=== PATIENT | female | born 1985 | race Caucasian/White ===

== ENCOUNTER 2024-01-15 14:25 | Outpatient (AMB) | payer OTHER, SELFPAY ==
--- NOTE | 2024-01-15 14:32 | A.OFFPC_ITS ---
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 Patient has concerns for bloating after eating, so much so it looks like she is . Patient has been trying different types of foods, seen by gastro and unable to figure out what the prob anali is. Loss if hearing from M?ni?re's disease. Patient has tingling feeling in bilateral arms and legs. Probe Operator Required: No Accompanied by: Self / Same As Patient Allergies No Known Allergies [No Known Allergies*] Allergy (Verified 01/15/24 14:41) Tobacco use date assessed: 01/15/24 Dental Screening Dental Screen Date: 01/15/24 Did you have a dental visit in the last 12 months?: Yes Did you have a dental problem in the last 6 months where you did not have access to dental care?: No Was dental information given to patient?: Patient has dentist HPI HPI Comments History of Present Illness Details This is a 38-year-old female with a past medical history of Meniere's disease presenting to establish care. Three years ago the patient was diagnosed with Meniere's disease. She is still seen every 6 months by ENT on was not having [place]. She is deaf in her right ear. The patient was seen by Dr. Holbrook at [facility] this month for numbness and tingling in extremities. She endorses symptoms for at least 3 years. She said she will have intermittent numbness and tingling that occurs once or twice per week lasting about 15 minutes which can affect the upper extremities, the shoulders and her lower extremities. She endorses fatigue. She endorses hand cramping. No weakness, back pain, neck pain or bowel or bladder incontinence. She endorses episodic knee pain. Lyme testing was negative. Hemoglobin A1c was normal. No dizziness or falls. She is going to follow up in 3 months. She had an MRI after onset of symptoms when she was diagnosed with Meniere's. Patient is also being evaluated by [facility] for upper abdominal pain with bloating and gas and distention. She can go months without symptoms before they return. She tried an antacid, but it made her feel worse so she stopped it. She has a follow up appointment at the end of February. She does not take NSAIDs. She does not drink or smoke. Patient reportedly had an ultrasound which did not show any cause for symptoms. Patient is seen by her stockroom helper at [facility] every 6 months due to cervical dysplasia. ROS: Constitutional: No unexplained weight loss, fever, chills or night sweats. Eyes: No vision changes, blurry vision, double vision or eye pain Respiratory: No shortness of breath, cough or sputum production. Cardiovascular: No chest pain, chest pressure or chest discomfort. No palpitations or pedal edema. Neurologic: No headache, dizziness, syncope, unilateral weakness, ataxia Musculoskeletal: No joint swelling Skin: No rash or itching. Physical exam: Constitutional: Alert, in no distress. Head: Normocephalic. Eyes: Pupils are equal, round and reactive to light. Extraocular muscles intact. Neck: Supple, Full range of motion. No lymphadenopathy. No palpable thyroid masses. Respiratory: Clear to auscultation. Cardiovascular: S1 S2 regular. No murmurs. Gastrointestinal: Abdomen soft, non-tender, non-distended. Normal bowel sounds. No palpable masses. Neurologic: No focal neurological deficits. Symmetric patellar reflexes. Moves all extremities spontaneously. Sensation intact bilaterally. Extremities: Warm and well perfused. No clubbing, cyanosis or edema. 3+ peripheral pulses bilaterally. Psychiatric: Normal mood and affect [facility] Medical History (Updated 01/15/24 @ 16:02 by MIR Dugan) Paresthesia Abdominal bloating Cervical dysplasia Fatigue Deafness in right ear Meniere disease Surgical History (Updated 01/15/24 @ 14:48 by Soraya Lainez CMA) Hx of breast implants, bilateral Family History (Updated 01/15/24 @ 15:24 by MIR Dugan) Maternal Aunt Breast cancer Social History (Updated 01/15/24 @ 14:46 by Soraya Lainez CMA) Household Members: Spouse and Children Housing: House Are you a primary career center director to a significant other at home: No Do you presently have visiting nurse or other home services: No 75 years or older and lives alone: No Alcohol intake: former Patient Tobacco Use Status: Never used Tobacco e-Cigarette/Vaping Use: Never Used service: No Current occupational status: employed Current occupation: [employer] Current occupational exposures/hazards: Yes Cognitive needs: No Hearing needs: Yes (deaf in right ear) Vision needs: No Questionnaire PHQ-9 Over the last 2 weeks, how often have you been bothered by any of the following problems? 1. Little interest or pleasure in doing things: not at all 2. Feeling down, depressed, or hopeless: not at all 3. Trouble falling or staying asleep, or sleeping too much: not at all 4. Feeling tired or having little energy: not at all 5. Poor appetite or overeating: not at all 6. Feeling bad about yourself - or that you are a failure or have let yourself or your family down: not at all 7. Trouble concentrating on things, such as reading the newspaper or watching television: not at all 8. Moving or speaking so slowly that other people could have noticed. Or the opposite - being so fidgety or restless that you have been moving around a lot more than usual: not at all 9. Thoughts that you would be better off or of hurting yourself in some way: not at all Total score: 0 Depression Screening Interpretation: Negative Depression Screening Done: Yes 56629 - PHQ-9 Billing: Yes Source: Developed by Drs. Matteo Chan, Lucretia Arciniega, Mickey Mercer and colleagues, with an educational deanne from [employer]. Thrive Questionnaire Date Thrive assessed: 01/15/24 I am a: Patient What is your living situation today?: I have a steady place to live Within the past 12 months, did the food you bought not last and you didn't have the money to get more?: Never true Within the past 12 months, did you worry whether your food would run out before you got money to buy more?: Never true Do you have trouble paying for medicines?: No Do you have trouble getting transportation to medical appointments?: No Do you have trouble paying your heating and electricity bill?: No Do you have trouble taking care of your child, family member or friend?: No Do you have trouble with day-to-day activities such as bathing, preparing meals, shopping, managing finances, etc.?: No Are you currently unemployed and looking for a job?: No Are you interested in more education?: No Please select the resources that you would like help with: None Currently or been in a relationship where the following occur: No concerns reported THRIVE Score: 0 AUDIT C Alcohol Use Questionnaire (AUDIT-C) 1. How often do you have a drink containing alcohol?: Never 3. How often do you have six or more drinks on one occasion?: Never Total Score: 0 EVANGELINA-7 AMB Questionnaire EVANGELINA-7 Date EVANGELINA - 7 assessed: 01/15/24 Feeling nervous, anxious, or on edge: 0 = Not at all Not being able to stop or control worryin = Not at all Worrying too much about different things: 0 = Not at all Trouble relaxin = Not at all Being so restless that it is hard to sit still: 0 = Not at all Becoming easily annoyed or irritable: 0 = Not at all Feeling afraid as if something awful might happen: 0 = Not at all Total EVANGELINA-7 score (0-4 normal; 5-9 mild; 10-14 moderate; 15-21 severe): 0 Source: Developed by Drs. Matteo Chan, Lucretia Arciniega, Mickey Mercer and colleagues, with an educational deanne from [employer]. EVANGELINA-7 Assessment Billing EVANGELINA-7 Assessment Tool: EVANGELINA-7 Assessment 88285 Physical exam (Primary Care) Vital Signs: Last Vital Signs Pulse 51 01/15/24 14:34 Resp 12 01/15/24 14:34 BP 104/58 L 01/15/24 14:34 Pulse Ox 99 01/15/24 14:34 Oxygen Delivery Method Room Air 01/15/24 14:34 BMI result Body Mass Index 24.6 Tobacco/Smoking Status: Tobacco use Status Tobacco use date assessed 01/15/24 01/15/24 14:51 Patient Tobacco Use Status Never used Tobacco 01/15/24 14:51 e-Cigarette/Vaping Use Never Used 01/15/24 14:51 PHQ-9: PHQ-9 Score PHQ-9: Total score 0 01/15/24 14:51 Depression Screening Interpretation: Negative Thrive Assessment: Date of Thrive Assessment Date Thrive assessed 01/15/24 01/15/24 14:51 Currently or been in a relationship where the following occur: No concerns reported Assessment and Plan Assessment & Plan (1) Abdominal bloating: Code(s): R14.0 - Abdominal distension (gaseous) Plan: See lab orders. Follow up with Gastroenterology as planned. May need endoscopy. (2) Paresthesia: Code(s): R20.2 - Paresthesia of skin Plan: Check complete labs. Ordered FATOUMATA and rheumatoid factor given fatigue and episodic knee pain. Follow up with Neurology as planned. (3) Meniere disease: Code(s): H81.09 - Meniere's disease, unspecified ear Qualifiers: Laterality: right Qualified Code(s): H81.01 - Meniere's disease, right ear Plan: Followed by ENT. 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 (4) Fatigue: Code(s): R53.83 - Other fatigue Qualifiers: Fatigue type: chronic, unspecified Qualified Code(s): R53.82 - Chronic fatigue, unspecified Plan Follow up in 1-2 weeks to review labs via telehealth. Orders: Orders Complete Blood Count Auto Diff Today R20.2 - Paresthesia of skin, R53.83 - Other fatigue, Z13.6 - Encounter for screening for cardiovascular disorders Comprehensive Met. Panel Today R20.2 - Paresthesia of skin, R53.83 - Other fatigue, Z13.6 - Encounter for screening for cardiovascular disorders Ferritin Today R53.83 - Other fatigue FATOUMATA Reflex Titer and Pattern Today M25.50 - Pain in unspecified joint Lipid Panel Today R20.2 - Paresthesia of skin, R53.83 - Other fatigue, Z13.6 - Encounter for screening for cardiovascular disorders TSH reflex Free T4 Today E66.9 - Obesity, unspecified, R20.2 - Paresthesia of skin, R53.83 - Other fatigue, Z13.6 - Encounter for screening for cardiovascular disorders Vitamin B12 and Folate Today R20.2 - Paresthesia of skin, R53.83 - Other fa tigue, Z13.6 - Encounter for screening for cardiovascular disorders Vitamin D 1,25 dihydroxy Today R20.2 - Paresthesia of skin, R53.83 - Other fatigue, Z13.6 - Encounter for screening for cardiovascular disorders IRON PROFILE Today R53.83 - Other fatigue Rheumatoid Factor Today M25.50 - Pain in unspecified joint Lipase Today R14.0 - Abdominal distension (gaseous) Coding Level of Care Code New Pt Level 3 (57126) Complex EM visit Add On G2211 Diagnoses Abdominal bloating R14.0 Paresthesia R20.2 Meniere's disease of right ear H81.01 Laterality: right Chronic fatigue R53.82 Fatigue type: chronic, unspecified Additional Codes EVANGELINA-7 Assessment Billing - EVANGELINA-7 Assessment Tool: EVANGELINA-7 Assessment 53409 ([id number])
[2024-01-15 14:34] VITALS: BP 104/58; PULSE 51; RESP 12; O2SAT 99; BMI 24.6
== END 2024-01-15 16:23 | disposition home or self-care (01) ==
PROVIDERS: PCP Physician Assistant Medical; Visit Provider Physician Assistant Medical
DX: R14.0 Abdominal distension (gaseous) (principal); R20.2 Paresthesia of skin; H81.01 Meniere's disease, right ear; R53.82 Chronic fatigue, unspecified
CPT/HCPCS: 99203; G2211

== ENCOUNTER 2024-01-16 09:12 | Outpatient (REF) | payer OTHER, SELFPAY ==
[2024-01-16 13:07] LABS: MANUAL DIFF FLAG NO
[2024-01-16 13:18] LABS: Basophils Percent Auto 0.9 % (0-2); Eosinophils Absolute Auto 0.1 X10*3/uL (0.0-0.4); Eosinophils Percent Auto 2.4 % (0-4); Hematocrit 41.7 % (37.0-47.0); Hemoglobin 13.9 g/dl (12.0-16.0); Imm Gran Abs Auto 0.01 X10*3/uL (0.00-0.03); Imm Gran Pct Auto 0.3 % (0.0-0.4); Lymphocytes Absolute Auto 1.1 X10*3/uL (1.2-4.9); Lymphocytes Percent Auto 34.5 % (20-40); Mean Corpuscular HGB Conc 33.3 g/dl (31.0-35.0); Mean Corpuscular Hemoglobin 28.9 pg (27.0-33.0); Mean Corpuscular Volume 86.7 fL (80.0-98.0); Mean Platelet Volume 10.9 fL (9.4-12.3); Monocytes Absolute Auto 0.3 X10*3/uL (0.1-1.2); Monocytes Percent Auto 9.5 % (2-11); Neutrophils Absolute Auto 1.7 x10*3/uL (2.0-8.3); Neutrophils Percent Auto 52.4 % (45-73); Platelet Count 230 X10*3/uL (160-400); Red Blood Count 4.81 X10*6/uL (4.20-5.50); Red Cell Distribution Width 13.2 % (11.0-16.0); White Blood Count 3.3 X10*3/uL (4.8-10.8)
[2024-01-16 13:37] LABS: Alanine Aminotransferase 22 U/L (0-31); Albumin Level 4.5 g/dL (3.5-5.0); Alkaline Phosphatase 47 U/L (39-117); Anion Gap 13 (12-20); Aspartate Amino Transferase 23 U/L (5-31); Bilirubin Total 0.4 mg/dL (0.0-1.0); Blood Urea Nitrogen 14 mg/dL (9-16); Carbon Dioxide 25 mmol/L (22-29); Chloride 107 mmol/L (96-108); Cholesterol 163 mg/dL (<200); Estimated Glomerular Filt Rate > 60; Glucose Random 96 mg/dL (60-115); HDL Cholesterol 82 mg/dL (>40); Iron 111 mcg/dL (30-160); LDL Cholesterol Calculated 73 mg/dL (<100); Lipase 21 U/L (8-78); Percent Iron Saturation 46 % (15-50); Potassium 4.2 mmol/L (3.3-5.1); Sodium 141 mmol/L (135-145); Total Iron Binding Capacity 241 mcg/dL (228-428); Total Protein 7.1 g/dL (6.5-8.0); Triglycerides 44 mg/dL (<150); Unsaturated Iron Binding 130 ug/dL
[2024-01-16 13:38] LABS: Rheumatoid Factor < 13.0 IU/mL (<15.0)
[2024-01-16 13:44] LABS: Ferritin 249 ng/mL (10-122)
[2024-01-16 13:55] LABS: Vitamin B12 502 pg/mL (200-900)
[2024-01-21 07:42] LABS: Anti Nuclear Antibody Screen NEGATIVE (NEGATIVE)
[2024-01-23 14:04] LABS: VITAMIN D (1,25 OH) D3 60 pg/mL; Vit D (1,25-Dihydroxy) Total 60 pg/mL (18-72); Vitamin D (1,25 OH) D2 <8 pg/mL
== END 2024-01-16 09:13 | disposition home or self-care (01) ==
LOC: HO.HMGCLDS 09:12
PROVIDERS: PCP Physician Assistant Medical; Visit Provider Physician Assistant Medical
DX: R53.83 Other fatigue (principal); Z13.6 Encounter for screening for cardiovascular disorders; R20.2 Paresthesia of skin; M25.50 Pain in unspecified joint; E66.9 Obesity, unspecified; R14.0 Abdominal distension (gaseous)
CPT/HCPCS: 36415; 80053; 80061; 82607; 82652; 82728; 82746; 83540; 83690; 84443; 85025; 86038; 86431

== ENCOUNTER 2024-02-16 11:49 | Outpatient (AMB) | payer OTHER, SELFPAY ==
--- NOTE | 2024-02-16 12:11 | MHC.PC.OV ---
Vital Signs 02/16/24 12:12 Height 5 ft 7 in Weight 128 lb BMI 20.0 BP 129/74 Blood Pressure Location Lt brachial Position Sitting Respiration 12 Pulse 81 Pulse Source Pulse Oximeter Pulse Oximetry (%) 100 Oxygen Delivery Method Room Air Intake Visit Reasons: results f/u Intake Note: Follow up results. Professor Of Pathology Required: No Is last menstrual period known: No (Has IUD hasn't had menstrual cycle in 2 months.) Allergies No Known Allergies [No Known Allergies*] Allergy (Verified 02/16/24 12:11) Tobacco use date assessed: 01/15/24 Dental Screening Dental Screen Date: 01/15/24 HPI HPI Comments History of Present Illness Details This is a 38-year-old female with a past medical history of Meniere's disease presenting to review lab results. We previously discussed that she has decreased neutrophils, lymphocyte count and white blood cell count at 1.7, 1.1 and 3.3, respectively. She is not anemic. Her platelet count is normal. Her ferritin is also elevated at 249. LFTs normal. No recent infections or hospitalizations. She does not recall being told she had low white blood cells in the past. No fevers or chills. She called while I was on vacation and requested a referral to see Heme-Onc. She has the appointment scheduled on Friday. Denies family history of hemochromatosis. Initially she reported not taking any supplements that contain iron, but she tells me today that she has been taking Viviscal for hair growth for the past 6 months. Iron is on the ingredient list. She contacted her heating and ventilation engineer, and she has an upper endoscopy scheduled on 04/22/2024 in [place]. On exam she had mild tinea versicolor on her upper back. She saw a automobile mechanic assistant about this in the past. Documented at initial visit: The patient was seen by Dr. Holbrook at [facility] this month for numbness and tingling in extremities. She endorses symptoms for at least 3 years. She said she will have intermittent numbness and tingling that occurs once or twice per week lasting about 15 minutes which can affect the upper extremities, the shoulders and her lower extremities. She endorses fatigue. She endorses hand cramping. No weakness, back pain, neck pain or bowel or bladder incontinence. She endorses episodic knee pain. Lyme testing was negative. Hemoglobin A1c was normal. No dizziness or falls. She is going to follow up in 3 months. She had an MRI after onset of symptoms when she was diagnosed with Meniere's. Patient is also being evaluated by [facility] for upper abdominal pain with bloating and gas and distention. She can go months without symptoms before they return. She tried an antacid, but it made her feel worse so she stopped it. She has a follow up appointment at the end of February. She does not take NSAIDs. She does not drink or smoke. Patient reportedly had an ultrasound which did not show any cause for symptoms. ROS: Constitutional: No unexplained weight loss, fever, chills or night sweats. +fatigue Eyes: No vision changes, blurry vision, double vision Respiratory: No shortness of breath, cough or sputum production. Cardiovascular: No chest pain, chest pressure or chest discomfort. Gastrointestinal: see HPI Neurologic: see HPI Hematologic/Lymphatics: No bleeding or bruising. Physical exam: Constitutional: Alert, in no distress. Head: Normocephalic. Neck: Supple, Full range of motion. No lymphadenopathy. No palpable thyroid masses. Respiratory: Clear to auscultation. Cardiovascular: S1 S2 regular. No murmurs Gastrointestinal: Abdomen soft, non-tender, non-distended. Normal bowel sounds. No palpable masses. Skin: Hypopigmented macular rash on the upper back [facility] Medical History (Updated 02/16/24 @ 13:28 by MIR Dugan) Tinea versicolor Decreased leukocytes High serum ferritin Paresthesia Abdominal bloating Cervical dysplasia Fatigue Deafness in right ear Meniere disease Surgical History (Updated 01/15/24 @ 14:48 by Soraya Lainez CMA) Hx of breast implants, bilateral Family History (Updated 01/15/24 @ 15:24 by MIR Dugan) Maternal Aunt Breast cancer Social History (Updated 01/15/24 @ 14:46 by Soraya Lainez CMA) Household Members: Spouse and Children Housing: House Are you a primary career services manager to a significant other at home: No Do you presently have visiting nurse or other home services: No 75 years or older and lives alone: No Alcohol intake: former Patient Tobacco Use Status: Never used Tobacco e-Cigarette/Vaping Use: Never Used service: No Current occupational status: employed Current occupation: [employer] Current occupational exposures/hazards: Yes Cognitive needs: No Hearing needs: Yes (deaf in right ear) Vision needs: No Questionnaire Thrive Questionnaire Date Thrive assessed: 01/15/24 EVANGELINA-7 AMB Questionnaire EVANGELINA-7 Date EVANGELINA - 7 assessed: 01/15/24 Source: Developed by Drs. Matteo Chan, Lucretia Arciniega, Mickey Mercer and colleagues, with an educational deanne from [employer]. Physical exam (Primary Care) Vital Signs: Last Vital Signs Pulse 81 02/16/24 12:12 Resp 12 02/16/24 12:12 BP 129/74 02/16/24 12:12 Pulse Ox 100 02/16/24 12:12 Oxygen Delivery Method Room Air 02/16/24 12:12 BMI result Body Mass Index 20.0 Tobacco/Smoking Status: Tobacco use Status Tobacco use date assessed 01/15/24 02/16/24 12:15 Patient Tobacco Use Status Never used Tobacco 02/16/24 12:15 e-Cigarette/Vaping Use Never Used 02/16/24 12:15 Thrive Assessment: Date of Thrive Assessment Date Thrive assessed 01/15/24 02/16/24 12:15 Assessment and Plan Assessment & Plan (1) Abdominal bloating: Code(s): R14.0 - Abdominal distension (gaseous) Plan: Follow up with Gastroenterology for endoscopy scheduled 04/22/2024 as planned. (2) Paresthesia: Code(s): R20.2 - Paresthesia of skin Plan: Labs nondiagnostic. Patient will follow up with Neurology as planned. (3) Meniere disease: Code(s): H81.09 - Meniere's disease, unspecified ear Qualifiers: Laterality: right Qualified Code(s): H81.01 - Meniere's disease, right ear Plan: Followed by ENT. 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 (4) High serum ferritin: Code(s): R79.89 - Other specified abnormal findings of blood chemistry Plan: This may in fact be due to taking the hair supplement which turned out to contain iron for the past 6 months. She will stop taking it. She will discuss this with Hematology. (5) Decreased leukocytes: Code(s): D72.819 - Decreased white blood cell count, unspecified Qualifiers: Leukopenia type: lymphocytopenia Qualified Code(s): D72.810 - Lymphocytopenia Plan: We again discussed this may be transient and that some patients have white blood cell counts outside of the normal range which may not be pathological. She requested a referral to see a body care manager, and she has the appointment scheduled on Friday. (6) Tinea versicolor: Code(s): B36.0 - Pityriasis versicolor Plan: Preventative measures reviewed. Prescribed topical ketoconazole. Recommended washing with Selsun blue shampoo. Plan Follow up for complete physical exam. Medications: New ketoconazole 2% 1 appl topical BID 60 grams 1RF Coding Level of Care Code Est Pt Level 4 (29601) Complex EM visit Add On G2211 Diagnoses Abdominal bloating R14.0 Paresthesia R20.2 Meniere's disease of right ear H81.01 Laterality: right High serum ferritin R79.89 Lymphopenia D72.810 Leukopenia type: lymphocytopenia Tinea versicolor B36.0
[2024-02-16 12:12] VITALS: BP 129/74; PULSE 81; RESP 12; O2SAT 100
== END 2024-02-16 12:44 | disposition home or self-care (01) ==
PROVIDERS: PCP Physician Assistant Medical; Visit Provider Physician Assistant Medical
DX: R14.0 Abdominal distension (gaseous) (principal); R20.2 Paresthesia of skin; H81.01 Meniere's disease, right ear; R79.89 Other specified abnormal findings of blood chemistry; D72.810 Lymphocytopenia; B36.0 Pityriasis versicolor
CPT/HCPCS: 99214; G2211

== ENCOUNTER → 2024-02-18 14:20 | Outpatient (BNV) | payer OTHER, SELFPAY | PROVIDERS: PCP Physician Assistant Medical; Referring Provider Physician Assistant Medical; Visit Provider Internal Medicine | DX: D72.819 Decreased white blood cell count, unspecified (principal); R79.89 Other specified abnormal findings of blood chemistry | CPT/HCPCS: 99204; 99214; G2211 ==

== ENCOUNTER 2024-07-26 08:33 | Outpatient (AMB) | payer OTHER, SELFPAY ==
--- OUTSIDE RECORDS SUMMARY | 2024-07-26 08:39 | XMS_ITS | Continuity of Care Document ---
Author Organization [facility] Address [address], [address], [address] [place] [address]- Care Team Providers Care Real Estate Coordinator Name Role Phone Rubén HOBBS, Glenny Sampson Primary Care Physician [id number] Date[facility]s): 06/03/24 - 07/03/24 [facility] [address], [address] [place] [id number] Encounter Type: Triage Allergies, Adverse Reactions, Alerts No Known Allergies Medications famotidine 40 mg oral tablet 1 tablet = 40 mg, By Mouth, 2 times a day, # 60 tablet, 3 Refills, Maintenance, 05/07/24 11:37:00 AM EST, Tablet, [facility] #[id number], Partial fill upon patient request if the prescription isfor a schedule II opioid drug., 169, cm, 05/07/24 10:04:00 EST, Height, 56.2, kg, 05/07/24 10:04:00EST, Dry Weight Start Date: 05/07/24 Stop Date: 09/04/24 Status: Ordered Quantity: 60.0 Unit: tablet Repeat number: 4 hyoscyamine 0.125 mg oral tablet 0.125 mg, 1, tablet, By Mouth, 4 times a day, PRN, # 40 tablet, Refills 3, Tot. Refills 3, Maintenance, for spasm, 03/19/24 9:19:00 AM EDT, Route to Pharmacy Electronically, [facility] #[id number], Partial fill upon patient request if the prescription is for a schedule II opioid drug., 169, cm,03/19/24 8:43:00 EDT, Height, 58.63, kg, 12/29/23 10:09:00 EDT, Dry Weight Start Date: 03/19/24 Status: Ordered Quantity: 40.0 Unit: tablet Repeat number: 4 Social History Social History Type Response Smoking Status Never (less than 100 in lifetime) entered on: 03/19/24 Sex Sex Representation Female (finding) Patient Care team information Care Team Personnel Name: Rubén HOBBS, Glenny Sampson Position: S Physician - Primary Care Member Role: PCP Address: [address] [place] [address] [facility] [place], [place] [address] Telecom: Care Team Related Persons Name: ALEX RAMIREZ Insurance Providers Guarantor name: [facility] Plan Information #: 1 Payer: [facility] Direct Non [place] Member Number: NA Policy Number: NA Group Number: NA
--- OUTSIDE RECORDS SUMMARY | 2024-07-26 08:39 | XMS_ITS | Clinical Summary ---
Author Organization [facility] Address [address] [place] [address] Care Team Providers Care Sludge Mill Operator Name Role Phone Unavailable Primary Care Provider Unavailabl e Social History Tobacco Use Types Packs/Day Years Used Date Smoking Tobacco: Never Assessed Sex and Gender Information Value Date Recorded Sex Assigned at Not on file Gender Identity Not on file Sexual Orientation Not on file Plan of Treatment Health Maintenance Due Date Last Done Comments DTaP,Tdap,and Td Vaccines (1 - Tdap) 2004 Hepatitis B Vaccines (1 of 3 - 19+ 3-dose series) 2004 Cervical Cancer Screening: P ap Smear 2006 COVID-19 Vaccine ( - 2023-2 5 season) 2024 Influenza Vaccine (#1) 2024 HIB Vaccines Aged Out No longer eligi ble based on patient's age to complete this topic HPV Vaccines Aged Out No longer eligi ble based on patient's age to complete this topic Hepatitis A Vaccines Aged Out No long er eligible based on patient's age to complete this topic IPV Vaccines Aged Out No longer eligi ble based on patient's age to complete this topic MMR Vaccines Aged Out No longer eligi ble based on patient's age to complete this topic Meningococcal ACWY Vaccine Aged Out N o longer eligible based on patient's age to complete this topic Pneumococcal Vaccine: Pediat rics (0 to 5 Years) and At-Risk Patients (6 to 64 Years) Aged Out No longer eligible b ased on patient's age to complete this topic RSV Immunization Patients Un martha 20 months Aged Out No longer eligible b ased on patient's age to complete this topic Varicella Vaccines Aged Out No longer eligible based on patient's age to complete this topic
--- OUTSIDE RECORDS SUMMARY | 2024-07-26 08:39 | XMS_ITS | Continuity of Care Document ---
Author Organization [facility] Address [address] [place] [address]- Care Team Providers Care Career Counselor Name Role Phone Rubén HOBBS, Glenny Sampson Primary Care Physician [place] [facility]/26/24 - 06/25/24 [facility] [address], [place] [address] Encounter Type: Triage Allergies, Adverse Reactions, Alerts No Known Allergies Medications famotidine 40 mg oral tablet 1 tablet = 40 mg, By Mouth, 2 times a day, # 60 tablet, 3 Refills, Maintenance, 05/07/24 11:37:00 AM EST, Tablet, [facility][id number], Partial fill upon patient request if the [...] 9:19:00 AM EDT, Route to Pharmacy Electronically, [facility] #[id number], Partial fill upon patient request if the [...] - Primary Care Member Role: PCP Address: [address] [place] [address] [facility] [place], [place] [address] Telecom: Care Team Related Persons Name: ALEX RAMIREZ Insurance Providers Guarantor name: [facility] Plan Information #: 1 Payer: [facility] Direct Non [place] Member Number: NA Policy Number: NA Group Number: NA
--- OUTSIDE RECORDS SUMMARY | 2024-07-26 08:39 | XMS_ITS | Data Portability ---
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 Cerumen removed bilaterally without difficulty. Follow up as scheduled for repeat procedure. [email or web address] Not available 01/13/2024 12:14:05 03/29/2024 03/29/2024 Cerumen successfully removed today without incident. Otologic exam otherwise unremarkable. Patient is medically cleared for hearing aid in the right ear. She will follow-up in 6 months with PA for cerumen removal. She understands to call in the interim with any issues that arise. [email or web address] Not available 03/29/2024 09:37:36 05/17/2024 05/17/2024 38-year-old female presents for reevaluation. Cerumen removed bilaterally without difficulty. TMs normal to inspection. Updated audiometric testing was obtained today. She would be a good candidate for cross amplification. She is interested in pursuing this option. She was given medical clearance for cross. Given neurological concerns and vast asymmetry on hearing test recommended updated MRI including IAC to rule out retrocochlear pathology. Will call with results and forward to neurologist. [email or web address] Not available 05/17/2024 15:25:21 06/10/2024 06/10/2024 Reviewed with patient the options available for the latest amplification devices, the differences between makes/models of devices, and the importance of selecting the best make/model for their lifestyle and audiometric needs. Discussed the importance of optimizing the ability to perceive and understand speech by analyzing the output of devices using speech mapping as part of our real-ear verification procedure. The patient's concerns about using hearing devices were discussed. Taking into consideration the patient's lifestyle, personal preferences, severity of hearing loss & hearing handicap, a fitting of Phonak CROS (R) eanybjkp-kh-rep-c anal hearing devices is expected to provide a significant improvement in the patient's ability to communicate. In addition to amplification, additional accommodations should be considered, such as closed captioning on the television or at movie theaters, strategically positioning ones' self closer to the listener, remote microphone technology, Bluetooth technology, and considering reducing noise & reverberation at home. Patient was sent home with a trail set to test the CROS system in her everyday life. Patient has requested for her insurance benefits to be check. This was completed and showed she has no insurgence benefits for hearing aids. I spoke with the patient following the appointment, she did not find enough benefit from the CROS system and would not like to proceed with the aids at this time. [email or web address] Not available 06/11/2024 10:33:28 Plan of Treatment Reminders Order Date Submit Date Provider Last Modified By Organization Details Last Modified Time Details Appointments Establish ed 15 2024 09:15A Carolyn VERDE PA-C Not available Not available Not available Establish ed 15 2024 11:15A M JANETTE PRESSLEY PA-C Not available Not available Not available Lab None recorded. Referral None recorded. Procedures None recorded. Surgeries None recorded. Imaging MRI, brain + internal auditory canal, w/wo contrast 2023 024 [facility] ([facility]), [address] [facility], [place], [address], 05/31/2024 14:29:19 Medication Orders None recorded. Patient TargetsNo targets recorded. Patient InstructionsNo instructions recorded. Reason for Referral None Reported. Results Created Date Observation Date Name Description Value Unit Range Abnormal Flag Note LastModifiedBy Organization Detail LastModifiedTime 02/11/20 24 10/31/2020 imagi ng/di agnos tic resul t No observ ation record ed. [email or web address] Not Available 10:59:29 02/11/20 24 11/03/2020 imagi ng/di agnos tic resul t No observ ation record ed. [email or web address] Not Available 10:59:31 02/11/20 24 12/05/2020 imagi ng/di agnos tic resul t No observ ation record ed. [email or web address] Not Available 10:59:37 02/11/20 24 01/28/2023 imagi ng/di agnos tic resul t No observ ation record ed. [email or web address] Not Available 10:59:39 05/18/20 audio gram No observ ation record ed. [email or web address] Not Available 04/24 08:33:35 06/02/20 24 06/01/2024 MRI, brain + inter nal audit ory canal , w/wo contr ast No observ ation [facility] [address] [place], [address], 06/18/2024 10:36:19 06/02/20 24 06/01/2024 MRI, brain + inter nal audit ory canal , w/wo contr ast No observ ation record ed. [email or web address] [facility] At [address], [address], 06/04/2024 10:00:05 Result Notes None recorded. Problems Name Problem SNOMED Code Status Onset Date Resolution Date Notes Provider Name and Address Organization Details Recorded Time Dizziness and giddiness 102802355 Active 2020 Dizziness and giddiness ; Note: Date Diagnosed : 10/31/2020 2:01 PM (R42) Not Available [facility] 4 03:16:46 Impacted cerumen in left ear 29358135707 57908 Active 2022 Impacted cerumen, left ear; Note: Date Diagnosed : 01/28/2023 9:45 AM (H61.22) Not Available [facility] 4 03:16:45 Otalgia of left ear 7237628199 Active 2020 Otalgia, left ear; Note: Date Diagnosed : 11/21/2020 9:53 AM (H92.02) Not Available [facility] 4 03:16:45 Sudden idiopathi c hearing loss 181727589 Active 2020 Sudden idiopathi c hearing loss, right ear; Note: Date Diagnosed : 10/31/2020 2:51 PM (H91.21) Not Available [facility] 4 03:16:45 Sensorine ural hearing loss 66057460 Active 2020 Sensorine ural hearing loss, unilatera l, right ear, with unrestric blanca hearing on the contralat eral side; Note: Date Diagnosed : 11/14/2020 11:21 AM (H90.41) Sensori neural hearing loss, unilatera l, left ear, with unrestric blanca hearing on the contralat eral side; Note: Date Diagnosed : 10/31/2020 2:01 PM (H90.42) ; Start Date : 1 Not Available [facility] 4 03:16:45 Impacted cerumen of bilateral ears 51260858359 20667 Active 2023 JANETTE PRESSLEY PA-C [address] [place] [address],[place] [address], [place], [address] , [facility] 4 12:14:16 Sensorine ural hearing loss in right ear 92604386035 100 Active 2023 Rowena metcalf [place] - [facility] [place] 4 10:34:01 Problem Notes None recorded. Procedures Surgical History Date Name Laterality Status Provider Name and Address Organization Details Recorded Time 4 Cerumen removal without microscope bilat completed JANETTE PRESSLEY PA-C [address] [place] [address],[place] [address], [place], [address], [facility] 05/17/2024 14:21:55 4 Air & Speech Audio with Tymps (50747, 94105 & 19315) completed Rowena Edmonds [place] - [facility] 05/17/2024 14:35:39 Cerumen removal without microscope bilat completed JUWAN VERDE PA-C [address] [facility], [place], [address], [facility] [place] 03/29/2024 09:37:08 Cerumen removal without microscope bilat completed JANETTE PRESSLEY PA-C [address] [facility], [place], [address], [facility] 01/13/2024 12:13:55 Imaging Results Imaging Date Name Status LastModified by Organiz [facility] Details LastModified Time 10/31/2020 imaging/diagno stic result completed Information not available 02/11/2024 10:59:29 11/03/2020 imaging/diagno stic result completed Information not available 02/11/2024 10:59:31 12/05/2020 imaging/diagno stic result completed Information not available 02/11/2024 10:59:37 01/28/2023 imaging/diagno stic result completed Information not available 02/11/2024 10:59:39 05/18/2024 audiogram completed [email or web address] Information n ot available 05/18/2024 08:33:35 06/01/2024 MRI, brain + internal auditory canal, w/wo contrast completed [facility] [address] [place], [address], 06/18/2024 10:36:19 06/01/2024 MRI, brain + internal auditory canal, w/wo contrast completed [address] Mri At [facility] [address] [place], [address], 06/04/2024 10:00:05 Procedure Notes None recorded. Medical Equipment None Reported. Medications Name Sig Start Date Stop Date Status Note LastModified by Organization Details LastModified Time prednison e 10 mg tablet 2020 active Medicati on ID: 000034 D uration Value: 14 Prescri bed By Name: VICTORIA Queen nd Name: predniso ne Send Method: E-Prescr ibed Sub s Allowed: subs OK Speci al Instruct ion: Take 6 tabs once a day for 9 days, 5 tabs on day 10, 4 tabs on day 11, 3 tabs on day 12, 2 tabs on day 13, and 1 tab on day 14 Medic ationGen ericName : predniso ne Not Available Not Available Not Available famotidin e 40 mg tablet TAKE 1 TABLET BY MOUTH TWICE DAILY active Not Available Not Available No t Available Zofran 4 mg tablet 1 tablet by mouth 2020 active Medicati on ID: [id number] D uration Value: 7 Prescri bed By Name: Akila gunter MD Brand Name: Zofran S end Method: E-Prescr ibed Sub s Allowed: subs OK Medic ationGen ericName : Zofran Not Available Not Available Not Available acyclovir 5 % topical ointment APPLY 1 BEAD TOPICALL Y THREE TIMES DAILY active Not Available Not Available No t Available omeprazol e 20 mg capsule,d elayed release TAKE 1 CAPSULE BY MOUTH DAILY 30 MINUTES BEFORE A MEAL active Not Available Not Available No t Available ketoconaz ole 2 % topical cream APPLY TOPICALL Y TO THE AFFECTED AREA TWICE DAILY active Not Available Not Available No t Available amoxicill in 875 mg-potass ium clavulana te 125 mg tablet 01/28 completed Medicati on ID: [id number] B rand Name: amoxicil angela-pot clavulan ate Send Method: E-Prescr ibed Sub s Allowed: subs OK Speci al Instruct ion: TAKE 1 TABLET BY MOUTH TWICE DAILY WITH FOOD FOR 10 DAYS Med icationG enericNa me: amoxicil angela-pot clavulan ate Not Available Not Available Not Available meclizine 25 mg chewable tablet 01/28 completed Medicati on ID: [id number] B rand Name: meclizin e Send Method: E-Prescr ibed Sub s Allowed: subs OK Speci al Instruct ion: CHEW 1 TABLET BY MOUTH EVERY 6 HOURS NEEDED FOR DIZZINES S OR NAUSEA M edicatio Renée Name: meclizin e Not Available Not Available Not Available Vitals Date Recorded Body height Body mass index (BMI) Body weight Provider Name and Address Organization Details Last Updated DateTime 01/13/2024 170.18 cm 19.3 kg/m2 21429.86 g Zac Jim [facility] 01/13/2024 10:46:39 Date Recorded Body height Body mass index (BMI) Body weight Provider Name and Address Organization Details Last Updated DateTime 03/29/2024 170.18 cm 19.3 kg/m2 95277.86 g Castillo Toth [facility] 03/29/2024 09:22:07 Social History None recorded. Functional Status None recorded. Mental Status None recorded. Family History Nothing Reported. Medical History No medical history recorded. Gynecological HistoryNo gynecological history recorded. Obstetrics History GPAL:G 0 P 0 0 0 0 Past Encounters Encounter ID Performer Location Encounter Start Date Encounter Closed Date Diagnosis/Indication Diagnosis SNOMED-CT Code Diagnosis ICD10 Code Diagnosis Note [id number] PILAR GARCIA MD [facility] [address] [address] 01/13/2024 10:33:43 01/13/2024 10:57:42 Sensorineural hearing loss 38902696 H90.41 H90.42 Impacted c erumen of bilateral ears 6304130219 988499 H61.23 YASMANI SMITH MD [facility] [address] [address] 03/29/2024 09:17:21 03/29/2024 09:37:03 Sensorineural hearing loss 47465249 H90.41 H90.42 Impacted c erumen of bilateral ears 9909309560 076008 H61.23 [id number] YASMANI SMITH MD [facility] [address] [address] 05/17/2024 13:12:12 05/18/2024 07:05:12 Impacted cerumen of bilateral ears 1201158891 328109 H61.23 Sensorineu ral hearing loss 68024063 H90.41 Audiologic al evaluation results: Right ear: No measurable hearing at audiometer limit. Left ear: {{Normal* Normal through 2 kHz Mild M oderate Mo derately-s evere Cat re Profoun d}} {{hearing* hearing. sloping to a mild slopi ng to a moderate s loping to moderately severe slo ping to severe slo ping to profound f lat high frequency low frequency mid frequency cookie bite martini curve}} {{with* se nsorineura l hearing loss with condu ctive hearing loss with mixed hearing loss with}} {{excellen t* good fa ir poor no measurable }} word recognitio n. Tympanomet ry: Right Ear:{{Type A* Type As Type Ad Type C Type C, shallow & rounded Ty pe B Type B with large volume Cou ld not maintain a hermetic seal}} Left Ear:{{Type A* Type As Type Ad Type C Type C, shallow & rounded Ty pe B Type B with large volume Cou ld not maintain a hermetic seal}} Sudden idi opathic hearing loss 476658275 H91.21 [id number] Edgard PARSONS [facility] [address] [address] 06/10/2024 10:26:40 06/26/2024 08:50:15 Sensorineural hearing loss in right ear 6144146099 9100 H90.41 Health Concerns Section Related Observation LastModified by Organization Detai ls LastModified Time None Recorded Concern Status LastModified by Organization Details LastModified Time None Recorded Advance Directives Directive None Recorded Payers Encounter Date Sequence Insurance Name Policy Number Policy Recio Covered Member ID Recio Member ID Guarantor Name 01/13/2024 1 [facility] [id number] Piedad Rucker [place] [id number] Piedad Z [place] 03/29/2024 1 [facility] [id number] Piedad Z [place] [id number] Piedad Chaim [place] 05/17/2024 1 [facility] [id number] Piedad Z [place] [id number] Piedad Z [place] 06/10/2024 1 [facility] [employer]CTORCARE TYPE I (HMO) [id number] Piedad Z [place] [id number] Piedad Rucker [place] Notes Date Note Type Note Provider Name and Address Organization Details Recorded Time 01/13/2024 text/html 38-year-old erin kincaid presents for cerumen removal. History of right-sided sudden sensorineural hearing loss without recovery. She has a cochlear implant but not interested. Presents for 6-month cerumen removal to prevent build up to maximize hearing in the left ear. PILAR GARCIA MD [address] [facility],[address], [address], [facility] 01/14/2024 08:15:02 03/29/2024 text/html 38-year-old erin kincaid presents for cerumen removal in advance of being fitted for hearing aids. She reports she has a fitting pending for the right ear at [facility]. She denies otalgia, otorrhea, and Q-tip use. YASMANI SMITH MD [address] [place] [address],[address], [id number], [facility] 03/29/2024 17:36:11 05/17/2024 text/html 38-year-old erin kincaid with history of right sudden sensorineural hearing loss who unfortunately did not recover hearing presents for reevaluation. Has been reconsidering amplification. Tried to go to [facility] but they stated she needed medical clearance. Also said she had wax bilaterally. She has also been having some neurological issues including numbness of her hands and feet. Did have an MRI given profound hearing loss on the right side when she had her initial hearing loss but has not had one since. Working with a neurologist. YASMANI SMITH MD [address] [facility],[address], [address], [facility] 05/17/2024 17:00:51 06/10/2024 text/html Patient returned to our office for the initial fitting of {{hearing devices a hearing device in the right ear a hearing device in the left ear CROS hearing system#}} as a {{first time user of amplification* longsta nding user of amplification longstan ding user of hearing devices longstanding user of amplification in the right ear longstanding user of amplification in the left ear}}. They have reported significant difficulty communicating in {{adverse listening situations* both adverse listening situations and in quiet}} and amplification has been recommended. Patient's case has been reviewed by an warehouse manager who has provided medical clearance for the use of hearing devices. Rowena metcalf [place] - [facility] 06/11/2024 10:34:12 OBGyn Episode No OBEpisode recorded.
--- NOTE | 2024-07-26 08:40 | MHC.PC.OV ---
Vital Signs 07/26/24 08:47 Height 5 ft 7 in Weight 126 lb BMI 19.7 BP 98/68 Blood Pressure Location Lt brachial Position Sitting Pulse 93 Pulse Source Pulse Oximeter Pulse Oximetry (%) 95 Oxygen Delivery Method Room Air Intake Visit Reasons: annual physical exam Intake Note: Physical. Has been having heart burn since having the endoscopy. Bump on right side of neck. 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 The patient is followed by Hematology, and she has a follow up appointment this month. She was last seen in 04/11/2024. She had hyperferritinemia with normal iron saturation and serum iron level. Liver functions are normal. 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 She was on an vent-ert-cqcofpo supplement for hair and nails which did contain iron. She stopped it months ago. Leukopenia was mild and thought to be benign. She is followed by Gastroenterology. She had an endoscopy on 04/22/2024 in [place]. Patient was told it was normal. She is going to schedule a follow up appointment because she still gets acid reflux. She takes famotidine 40 mg daily as needed. Patient noticed a skin growth on the right side of her neck 5 months ago. It is not itching or painful. It does not bleed. She has no history of skin cancer. She does not use tanning beds. She does apply sunscreen when she is outside for a long period of time. She has not noticed a change in it, but she is concerned because it looks a little irregular. Patient is followed by Dr. James, [facility], for evaluation of numbness and tingling in her extremities. Symptoms began over 3 years ago. They are intermittent. She also endorsed chronic fatigue and hand cramping. Testing for Lyme was negative. Hemoglobin A1c was normal. She had an EMG on 07/01/2024 which showed bilateral carpal tunnel syndrome. She also had an MRI of the cervical spine and brain with and without contrast on 06/01/2024. It demonstrated a few small hyperintense foci in the subcortical white matter, no evidence of demyelinating disease in the cervical spinal cord and severe left-sided neural foraminal narrowing at C5-6 due to left-sided uncovertebral spurring. There was no high-grade central stenosis or cord compression. She denies progression of symptoms She is up-to-date with eye and dental exams. She has no family history of colon cancer. She had 1 maternal aunt with breast cancer over the age of 50. She is up-to-date with gynecology visits. She declines influenza vaccine. Tetanus immunization is up-to-date until 2026. ROS: Constitutional: No unexplained weight loss, fever, chills, fatigue or night sweats. Eyes: No vision changes, blurry vision, double vision, eye pain, eye redness, eye discharge. ENT: Baseline hearing loss of the right ear, no left-sided hearing loss, no ear pain, no sneezing, congestion, runny nose or sore throat. Respiratory: No shortness of breath, cough or sputum production. Cardiovascular: No chest pain, chest pressure or chest discomfort. No palpitations or pedal edema. Gastrointestinal: No anorexia, nausea, vomiting or diarrhea. No abdominal pain or blood in stool. Genitourinary: No dysuria, hematuria, urinary frequency. Neurologic: No headache, dizziness, syncope, unilateral weakness or ataxia. See HPI. No seizures or tremors. Musculoskeletal: No muscle pain, back pain, joint pain or swelling. Hematologic/Lymphatics: No bleeding or bruising. No painful lymph nodes. Skin: See HPI Endocrine: No cold or heat intolerance. No polyuria or polydipsia. Psychiatric: No depression or anxiety. No SI/HI. Physical exam: Constitutional: Alert, in no distress. Head: Normocephalic. Eyes: Pupils are equal, round and reactive to light. Extraocular muscles intact. Ear, Nose and Throat: Canals clear. TMs normal. Normal nasal mucosa. No nasal discharge. No oral lesions. Neck: Supple, Full range of motion. No lymphadenopathy. No palpable thyroid masses. Respiratory: Clear to auscultation. Cardiovascular: S1 S2 regular. No murmurs. Gastrointestinal: Abdomen soft, non-tender, non-distended. Normal bowel sounds. No palpable masses. Neurologic: No focal neurological deficits. Symmetric patellar reflexes. Moves all extremities spontaneously. Sensation intact bilaterally. Handgrip strength 5/5 bilaterally. Skin: 4 mm flesh-colored raised lesion that is an irregular shape with a slightly rough consistency on the right side of the neck, nontender to palpation Musculoskeletal: No gross deformities. Normal range of motion. Extremities: Warm and well perfused. No clubbing, cyanosis or edema. 3+ peripheral pulses bilaterally. Psychiatric: Normal mood and affect [facility] Medical History (Updated 07/26/24 @ 12:16 by MIR Dugan) Bilateral carpal tunnel syndrome GERD (gastroesophageal reflux disease) Routine physical examination Neoplasm of skin Neuroforaminal stenosis of cervical spine Tinea versicolor Decreased leukocytes High serum ferritin Paresthesia Abdominal bloating Cervical dysplasia Fatigue Deafness in right ear Meniere disease Surgical History Hx of breast implants, bilateral Family History Maternal Aunt Breast cancer Social History (Updated 07/26/24 @ 09:14 by Estrella Newberry CMA) Household Members: Spouse and Children Housing: House Are you a primary insurance healthcare representative to a significant other at home: No Do you presently have visiting nurse or other home services: No 75 years or older and lives alone: No Alcohol intake: former Patient Tobacco Use Status: Never used Tobacco e-Cigarette/Vaping Use: Never Used Second Hand Smoke Exposure: No service: No Current occupational status: employed Current occupation: [employer] Current occupational exposures/hazards: Yes Cognitive needs: No Hearing needs: Yes (deaf in right ear) Vision needs: No Questionnaire PHQ-9 Over the last 2 weeks, how often have you been bothered by any of the following problems? 1. Little interest or pleasure in doing things: not at all 2. Feeling down, depressed, or hopeless: not at all 3. Trouble falling or staying asleep, or sleeping too much: not at all 4. Feeling tired or having little energy: not at all 5. Poor appetite or overeating: not at all 6. Feeling bad about yourself - or that you are a failure or have let yourself or your family down: not at all 7. Trouble concentrating on things, such as reading the newspaper or watching television: not at all 8. Moving or speaking so slowly that other people could have noticed. Or the opposite - being so fidgety or restless that you have been moving around a lot more than usual: not at all 9. Thoughts that you would be better off or of hurting yourself in some way: not at all Total score: 0 Depression Screening Interpretation: Negative Depression Screening Done: Yes 00204 - PHQ-9 Billing: Yes Source: Developed by Drs. Matteo Chan, Lucretia Arciniega, Mickey Mercer and colleagues, with an educational deanne from [employer]. Thrive Questionnaire Date Thrive assessed: 07/26/24 I am a: Patient What is your living situation today?: I have a steady place to live Within the past 12 months, did the food you bought not last and you didn't have the money to get more?: Never true Within the past 12 months, did you worry whether your food would run out before you got money to buy more?: Never true Do you have trouble paying for medicines?: No Do you have trouble getting transportation to medical appointments?: No Do you have trouble paying your heating and electricity bill?: No Do you have trouble taking care of your child, family member or friend?: No Do you have trouble with day-to-day activities such as bathing, preparing meals, shopping, managing finances, etc.?: No Are you currently unemployed and looking for a job?: No Are you interested in more education?: No Please select the resources that you would like help with: None Currently or been in a relationship where the following occur: No concerns reported THRIVE Score: 0 AUDIT C Alcohol Use Questionnaire (AUDIT-C) 1. How often do you have a drink containing alcohol?: Never Total Score: 0 EVANGELINA-7 AMB Questionnaire EVANGELINA-7 Date EVANGELINA - 7 assessed: 07/26/24 Feeling nervous, anxious, or on edge: 0 = Not at all Not being able to stop or control worryin = Not at all Worrying too much about different things: 0 = Not at all Trouble relaxin = Not at all Being so restless that it is hard to sit still: 0 = Not at all Becoming easily annoyed or irritable: 0 = Not at all Feeling afraid as if something awful might happen: 0 = Not at all Total EVANGELINA-7 score (0-4 normal; 5-9 mild; 10-14 moderate; 15-21 severe): 0 Source: Developed by Drs. Matteo Chan, Lucretia Arciniega, Mickey Mercer and colleagues, with an educational denane from [employer]. EVANGELINA-7 Assessment Billing EVANGELINA-7 Assessment Tool: EVANGELINA-7 Assessment 88417 Physical exam (Primary Care) Vital Signs: Last Vital Signs Pulse 93 07/26/24 08:47 BP 98/68 07/26/24 08:47 Pulse Ox 95 07/26/24 08:47 Oxygen Delivery Method Room Air 07/26/24 08:47 BMI result Body Mass Index 19.7 Tobacco/Smoking Status: Tobacco use Status Tobacco use date assessed 07/26/24 07/26/24 08:43 Patient Tobacco Use Status Never used Tobacco 07/26/24 09:14 e-Cigarette/Vaping Use Never Used 07/26/24 09:14 PHQ-9: PHQ-9 Score PHQ-9: Total score 0 07/26/24 09:14 Depression Screening Interpretation: Negative Thrive Assessment: Date of Thrive Assessment Date Thrive assessed 07/26/24 07/26/24 09:14 Currently or been in a relationship where the following occur: No concerns reported Coding Level of Care Code Est Pt Prev Care 18-39y(52609) Diagnoses Routine physical examination Z00.00 Neoplasm of skin D49.2 Neuroforaminal stenosis of cervical spine M48.02 High serum ferritin R79.89 Lymphopenia D72.810 Leukopenia type: lymphocytopenia GERD (gastroesophageal reflux disease) K21.9 Paresthesia R20.2 Additional Codes EVANGELINA-7 Assessment Billing - EVANGELINA-7 Assessment Tool: EVANGELINA-7 Assessment 85610 ([id number]) PHQ-9 - 00798 - PHQ-9 Billing: Yes ([id number]) Assessment & Plan Assessment & Plan (1) Routine physical examination: Code(s): Z00.00 - Encounter for general adult medical examination without abnormal findings Category: Medical Plan: Patient is seen today for a routine physical. As part of this visit we reviewed the following issues, which are considered and essential part of preventative health in this age group: - Breast Cancer screening-annual breast exam with administration dean and mammogram starting age 40 - Annual Voice Studies Director exam - Screening for colon cancer - at this time indicated at age 45 - Blood pressure screening - Cholesterol screening - UTD - Osteoporosis prevention including calcium/vitamin D intake, weight bearing exercise & smoking cessation - Nutritional and exercise counseling - Counseling of injury prevention including fire prevention, smoke alarms and seat belt usage - Screening for depression - Prevention of and/or testing for infectious diseases - Education about skin cancer - Recommendations about immunizations - Recommendation of an eye exam - Screening for substance abuse (2) Neoplasm of skin: Code(s): D49.2 - Neoplasm of unspecified behavior of bone, soft tissue, and skin Category: Medical Plan: Reviewed differential with the patient including benign skin lesion versus skin cancer. Referred to Dermatology urgently given irregular appearance of neoplasm on the neck. Patient given contact number to call [facility] as well. (3) Neuroforaminal stenosis of cervical spine: Code(s): M48.02 - Spinal stenosis, cervical region Category: Medical Plan: Referred to [facility] and is 4 in [place] for further evaluation and treatment. (4) High serum ferritin: Code(s): R79.89 - Other specified abnormal findings of blood chemistry Category: Medical Plan: Evaluated by Hematology. She has a follow up appointment scheduled. This may have been due to the supplement she was taking. (5) Decreased leukocytes: Code(s): D72.819 - Decreased white blood cell count, unspecified Category: Medical Qualifiers: Leukopenia type: lymphocytopenia Qualified Code(s): D72.810 - Lymphocytopenia Plan: Evaluated by Hematology and thought to be benign. She will follow up with Hematology as planned. (6) GERD (gastroesophageal reflux disease): Code(s): K21.9 - Gastro-esophageal reflux disease without esophagitis Category: Medical Plan: Continue famotidine daily as needed. Lifestyle modifications reviewed. She will call Gastroenterology to schedule a follow up. She will contact me if the symptoms worsen or change. (7) Paresthesia: Code(s): R20.2 - Paresthesia of skin Category: Medical Plan: EMG confirmed bilateral carpal tunnel syndrome. Referred to hand surgeon. She had an MRI of the brain as well which showed nonspecific white matter changes. There is a wide differential for these, and she will contact her neurologist to follow up to discuss the results. Plan Follow up in 8 weeks. Orders: Referrals Physiatry Referral M48.02 - Spinal stenosis, cervical region Hand Surgery Referral G56.03 - Carpal tunnel syndrome, bilateral upper limbs Dermatology Referral D49.2 - Neoplasm of unspecified behavior of bone, soft tissue, and skin
[2024-07-26 08:47] VITALS: BP 98/68; PULSE 93; O2SAT 95; BMI 19.7
== END 2024-07-26 09:19 | disposition home or self-care (01) ==
PROVIDERS: PCP Physician Assistant Medical; Visit Provider Physician Assistant Medical
DX: Z00.00 Encounter for general adult medical examination without abnormal findings (principal); D49.2 Neoplasm of unspecified behavior of bone, soft tissue, and skin; M48.02 Spinal stenosis, cervical region; R79.89 Other specified abnormal findings of blood chemistry; D72.810 Lymphocytopenia; K21.9 Gastro-esophageal reflux disease without esophagitis; R20.2 Paresthesia of skin

== ENCOUNTER → 2024-07-26 08:33 | Outpatient (BNVA) | payer OTHER, SELFPAY | PROVIDERS: PCP Physician Assistant Medical; Visit Provider Physician Assistant Medical | DX: Z00.00 Encounter for general adult medical examination without abnormal findings (principal); H81.09 Meniere's disease, unspecified ear; D49.2 Neoplasm of unspecified behavior of bone, soft tissue, and skin; M48.02 Spinal stenosis, cervical region; R79.89 Other specified abnormal findings of blood chemistry; D72.810 Lymphocytopenia; K21.9 Gastro-esophageal reflux disease without esophagitis; R20.2 Paresthesia of skin; G56.03 Carpal tunnel syndrome, bilateral upper limbs | CPT/HCPCS: 96127 ==

== ENCOUNTER 2024-12-17 13:00 | Outpatient (AMB) | payer OTHER, SELFPAY ==
--- NOTE | 2024-12-17 13:03 | A.OFFPC_ITS ---
Intake Visit Reasons: Left Ear Infection Allergies No Known Allergies (No Known Allergies*) Allergy (Verified 07/26/24 08:45) Tobacco use date assessed: 07/26/24 Dental Screening Dental Screen Date: 01/15/24 [facility] Medical History (Updated 08/02/24 @ 11:53 by Yael Rosenberg MD) Bilateral carpal tunnel syndrome GERD (gastroesophageal reflux disease) Routine physical examination Neoplasm of skin Neuroforaminal stenosis of cervical spine Tinea versicolor Decreased leukocytes High serum ferritin Paresthesia Abdominal bloating Cervical dysplasia Fatigue Deafness in right ear Meniere disease Surgical History Hx of breast implants, bilateral Family History Maternal Aunt Breast cancer Social History Household Members: Spouse and Children Housing: House Are you a primary primary care physician to a significant other at home: No Do you presently have visiting nurse or other home services: No 75 years or older and lives alone: No Alcohol intake: former Patient Tobacco Use Status: Never used Tobacco e-Cigarette/Vaping Use: Never Used Second Hand Smoke Exposure: No service: No Current occupational status: employed Current occupation: [employer] Current occupational exposures/hazards: Yes Cognitive needs: No Hearing needs: Yes (deaf in right ear) Vision needs: No Questionnaire Thrive Questionnaire Date Thrive assessed: 07/26/24 I am a: Patient What is your living situation today?: I have a steady place to live Within the past 12 months, did the food you bought not last and you didn't have the money to get more?: Never true Within the past 12 months, did you worry whether your food would run out before you got money to buy more?: Never true Do you have trouble paying for medicines?: No Do you have trouble getting transportation to medical appointments?: No Do you have trouble paying your heating and electricity bill?: No Do you have trouble taking care of your child, family member or friend?: No Do you have trouble with day-to-day activities such as bathing, preparing meals, shopping, managing finances, etc.?: No Are you currently unemployed and looking for a job?: No Are you interested in more education?: No Please select the resources that you would like help with: None Currently or been in a relationship where the following occur: No concerns reported THRIVE Score: 0 AUDIT C Alcohol Use Questionnaire (AUDIT-C) 3. How often do you have six or more drinks on one occasion?: Never Total Score: 0 EVANGELINA-7 AMB Questionnaire EVANGELINA-7 Date EVANGELINA - 7 assessed: 07/26/24 Source: Developed by Drs. Matteo Chan, Lucretia Arciniega, Mickey Merecr and colleagues, with an educational deanne from [employer]. Physical exam (Primary Care) Tobacco/Smoking Status: Tobacco use Status Tobacco use date assessed 07/26/24 07/26/24 08:43 Patient Tobacco Use Status Never used Tobacco 07/26/24 09:14 e-Cigarette/Vaping Use Never Used 07/26/24 09:14 Thrive Assessment: Date of Thrive Assessment Date Thrive assessed 07/26/24 07/26/24 09:14 Currently or been in a relationship where the following occur: No concerns reported Coding
--- NOTE | 2024-12-17 13:03 | MHC.OFFWIV ---
Intake Vital Signs 12/17/24 13:10 Height 5 ft 7 in Weight 127 lb BMI 19.9 BP 110/67 Blood Pressure Location Lt brachial Position Sitting Respiration 12 Pulse 72 Pulse Source Pulse Oximeter Temp 97.2 F Temp Source Oral Pulse Oximetry (%) 99 Oxygen Delivery Method Room Air Intake Visit Reasons: Left Ear Infection Intake Note: Patient c/o left ear feeling clogged and burning feeling x 2 weeks. Patient is permanently deaf on right ear. Patient also c/o lower abd pain radiating to lower back and down her legs started yesterday. 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 - Pain severity increased two days ago. - Symptoms emerged two weeks ago correlating with a [place] trip. - Describes sensation as clogged and tunnel-like. - No fever or chills, but there is an occasional burning sensation. - History of right ear deafness due to menieres. - Diagnosed with Meniere's disease, tumor ruled out previously. - Recent wax build-up in both ears. - Symptoms include headaches and burning in left side. - Fear of medical tx given mishaps in the past involving her ears _ she also started to describe radicular sx of BLE and parasthesias of BUE; advised she was scheduled for L ear walk in and quick review of chart appears she has previous spinal problems being managed by PCP. She offers no red flag sx requiring attention today. I did advise of her of the need for PCP management, which she agrees to. States she called [employer] for eval and tx as well. Review of Systems - Ear, Nose, and Throat: Reports left ear pain, feeling of clogging, diminished hearing, and history of right ear deafness. - Neurological: Reports headaches, left side burning sensation, and past occurrences of vertigo. Reports tingling and numbness in hands and legs. - General: Denies fever and chills. Exam Awake alert NAD Sclera and conjunctiva clear bilat Nares patent, turbinates within normal limits, no sinus tenderness with palpation bilat Cerumen impaction bilat, no mastoid pain. MMM, pharynx WNL RRR LS CTAB I asked pt to call her ENT to lavage, given her hx, admitted I was reluctant to perform any sort of treatment States -ENT unavailability until February She asked for a lavage w/o use of spoon or Q tip to be done bilat. Made her aware of the risks, she wishes to proceed. Discussion Notes I discussed the patient's ear pain and history of significant sensorineural hearing loss on the right side. We talked about the safe removal of the cerumen impaction, using ear lavage rather than manual removal, given the patient's previous traumatic experience. The risks and benefits of at-home interventions versus waiting for an ENT specialist were reviewed. The patient expressed concerns about the delay in ENT care. I emphasized the avoidance of problematic interventions like Q-tips and reinforced consulting with her regular ear, nose, and throat provider if possible. Agreed on implementing immediate ear lavage to provide temporary relief. Discussed the need to return earlier if symptoms worsen or any signs of infection develop. Follow-up care recommendations given. Consent Patient was informed and verbally consented to the use of an ambient scribe for clinic note documentation during this visit. Total time spent caring for the patient today was 40 minutes. This includes time spent before the visit reviewing the chart, time spent during the visit, and time spent after the visit on documentation, reviewing laboratory results, diagnostic imaging, medications, performing a medically necessary evaluation, counseling on diagnoses, care coordination, ordering appropriate tests, ordering appropriate medications, review of tests performed by other providers, reporting test results with the patient, communication with other healthcare providers. [facility] Medical History (Updated 12/17/24 @ 13:57 by Carmel Peterson, [facility] Abdominal bloating Bilateral carpal tunnel syndrome Cervical dysplasia Deafness in right ear Decreased leukocytes Fatigue GERD (gastroesophageal reflux disease) High serum ferritin Meniere disease Neoplasm of skin Neuroforaminal stenosis of cervical spine Paresthesia Routine physical examination Tinea versicolor Surgical History Hx of breast implants, bilateral Family History Maternal Aunt Breast cancer Social History Household Members: Spouse and Children Housing: House Are you a primary vision care associate to a significant other at home: No Do you presently have visiting nurse or other home services: No 75 years or older and lives alone: No Alcohol intake: former Patient Tobacco Use Status: Never used Tobacco e-Cigarette/Vaping Use: Never Used Second Hand Smoke Exposure: No service: No Current occupational status: employed Current occupation: [employer] Current occupational exposures/hazards: Yes Cognitive needs: No Hearing needs: Yes (deaf in right ear) Vision needs: No Physical Exam Vital Signs: Last Vital Signs Temp 97.2 F 12/17/24 13:10 Pulse 72 12/17/24 13:10 Resp 12 12/17/24 13:10 BP 110/67 12/17/24 13:10 Pulse Ox 99 12/17/24 13:10 Oxygen Delivery Method Room Air 12/17/24 13:10 BMI result Body Mass Index 19.9 Office Procedures Cerumen Removal Details: There was a scant amt of retain cerumen bilat; I was able to see the TM which was intact and clear bilat. She requested AB just for coverage. I have agreed to send in ear gtts and advised for close fu with PCP on Friday for re-eval She agrees to this plan From which ear canal was the cerumen removed: bilateral Removal: irrigation Notes: patient tolerated procedure well, no complications and ear canal clear [id number] Irrigation/Lavage Assessment & Plan Assessment & Plan (1) Meniere disease: Code(s): H81.09 - Meniere's disease, unspecified ear Qualifiers: Laterality: right Qualified Code(s): H81.01 - Meniere's disease, right ear (2) Deafness in right ear: Code(s): H91.91 - Unspecified hearing loss, right ear (3) Impacted cerumen, bilateral: Code(s): H61.23 - Impacted cerumen, bilateral (4) Neuroforaminal stenosis of cervical spine: Code(s): M48.02 - Spinal stenosis, cervical region (5) Acute low back pain with radicular symptoms, duration less than 6 weeks: Code(s): M54.10 - Radiculopathy, site unspecified Plan . Medications: New ciprofloxacin-hydrocortisone 0.2-1 % 3 drps otic (ears) BID 10 mL 0RF 7 days Patient Instructions: . Coding Level of Care Code Est Pt Level 5 (13499) Diagnoses Meniere's disease of right ear H81.01 Laterality: right Deafness in right ear H91.91 Impacted cerumen, bilateral H61.23 Neuroforaminal stenosis of cervical spine M48.02 Acute low back pain with radicular symptoms, duration less than 6 weeks M54.10 CPT Codes Office Procedure - CPT: 07435-Ghx Irrigation/Lavage ([id number])
[2024-12-17 13:10] VITALS: BP 110/67; PULSE 72; RESP 12; TEMP 36.2; O2SAT 99; BMI 19.9
--- OUTSIDE RECORDS SUMMARY | 2024-12-17 13:35 | XMS_ITS | Encounter Summary ---
Author Organization [facility] Address [id number] [place] [phone] Care Team Providers Care Audience Development Manager Name Role Phone Physician, Pcp Unknown Primary Care Provider Kenyetta vailable Encounter Details Date Type Department Care Team (Latest Contact Info) Description 09/10/2024 Lab Requisition [facility] - Main Lab [address] [facility] [place] [address] Ambrocio De Paz MD [address] [address] Encounter for gynecological examination (general) (routine) without abnormal findings Social History Tobacco Use Types Packs/Day Years Used Date Smoking Tobacco: Never Assessed Comments Unknown Sex and Gender Information Value Date Recorded Sex Assigned at Not on file Legal Sex Female 5:55 PM EST Gender Identity Not on file Sexual Orientation Not on file documented as of this encounter Plan of Treatment Not on file documented as of this encounter Procedures Procedure Name Priority Date/Time Associated Diagnosis Comments PAP SMEAR Routine 09/09/2024 12:00 AM EDT Encounter for gynecological examination (general) (routine) without abnormal findings documented in this encounter Results * Pap smear (09/09/2024 12:00 AM EDT) Interpretation Negative for intraepithelial lesion or malignancy 09/13/2024 2:[address] [facility] General Categorization Negative 09/13/2024 2:[address] [facility] Specimen Adequacy Satisfactory for evaluation, endocervical/elias sformation zone component absent 09/13/2024 2:[address] [facility] Pap Methodology Liquid Based Pap Test 09/13/2024 2:[address] [facility] Disclaimer The Pap test is a screening test which carries an inherent false negative rate. These test results should be correlated with the patient's clinical findings and history. This Pap test was processed using an automated screening system. Technical cytopathology services provided by [facility], at [address] [place] [address] (CLIA # [id number]/Kaylin Figueredo MD, [employer].) 09/13/2024 2:[address] [facility] Console Pap Interpretation Reported 09/13/2024 2:[address] [facility] Brushing/Spatula Cervix uteri structure / Unknown 09/09/2024 09/10/2024 6:59 AM EDT us Ambrocio De Paz MD LAB CYTOLOGY ORDERABLES Final Result [facility] [address] [place] [address], documented in this encounter Visit Diagnoses Diagnosis Encounter for gynecological examination (general) (routine) without abnormal findings documented in this encounter Care Teams Audience Development Manager Relationship Specialty Start Date End Date Physician, Pcp Unknown PCP - General 09/10/24 documented as of this encounter
== END 2024-12-17 13:51 | disposition home or self-care (01) ==
LOC: HO.HMCFM 13:01
PROVIDERS: PCP Physician Assistant Medical; Visit Provider Nurse Practitioner Family
DX: H81.01 Meniere's disease, right ear (principal); H91.91 Unspecified hearing loss, right ear; M48.02 Spinal stenosis, cervical region; M54.10 Radiculopathy, site unspecified; H61.23 Impacted cerumen, bilateral

== ENCOUNTER → 2024-12-17 13:00 | Outpatient (BNVA) | payer OTHER, SELFPAY | PROVIDERS: PCP Physician Assistant Medical; Visit Provider Nurse Practitioner Family | DX: H61.23 Impacted cerumen, bilateral (principal); H81.01 Meniere's disease, right ear; M48.02 Spinal stenosis, cervical region; M54.10 Radiculopathy, site unspecified | CPT/HCPCS: 69209 ==

== ENCOUNTER 2024-12-20 10:09 | Outpatient (AMB) | payer OTHER, SELFPAY ==
--- NOTE | 2024-12-20 10:15 | MHC.PC.OV ---
Vital Signs 12/20/24 10:20 Height 5 ft 7 in Weight 127 lb BMI 19.9 BP 100/68 Blood Pressure Location Lt brachial Position Sitting Pulse 63 Pulse Source Pulse Oximeter Temp 98.6 F Temp Source Temporal Artery Scan Pulse Oximetry (%) 100 Oxygen Delivery Method Room Air Intake Visit Reasons: friday w/ Joseline - BLE radicular sx; Upper ext par Intake Note: Piedad presents in the office today for a follow up. Allergies No Known Allergies (No Known Allergies*) Allergy (Verified 12/20/24 10:19) Tobacco use date assessed: 12/20/24 Dental Screening Dental Screen Date: 12/20/24 Did you have a dental visit in the last 12 months?: Yes Did you have a dental problem in the last 6 months where you did not have access to dental care?: No Was dental information given to patient?: Patient has dentist HPI HPI Comments History of Present Illness Details This is a 38-year-old female with a past medical history of Meniere's disease, deafness in the right ear, paresthesias, elevated serum ferritin and leukopenia presenting for follow up. She was seen at the walk-in for cerumen impaction. She reports irrigation was successful. She did not use the antibiotic drops, but pain and itching fully resolved. Denies fevers or chills. 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 The patient is followed by Hematology. She was last seen in 04/11/2024. She had hyperferritinemia with normal iron saturation and serum iron level. Liver functions are normal. 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 Leukopenia is mild and thought to be benign. She is followed by Gastroenterology. She had an endoscopy on 04/22/2024 in [place]. She is going to schedule a follow up appointment because she still gets acid reflux. She has been treated with famotidine 40 mg twice daily as needed. Patient would like a referral to a different neurologist for evaluation of numbness and tingling in her extremities. She was found to have carpal tunnel syndrome, but no cause was found for paresthesias in her legs. She was previously evaluated by Dr. James, [facility]. Symptoms began over 3 years ago. They are intermittent. She also endorsed chronic fatigue and hand cramping. Testing for Lyme was negative. Hemoglobin A1c was normal. She had an EMG on 07/01/2024 which showed bilateral carpal tunnel syndrome. She also had an MRI of the cervical spine and brain with and without contrast on 06/01/2024. It demonstrated a few small hyperintense foci in the subcortical white matter, no evidence of demyelinating disease in the cervical spinal cord and severe left-sided neural foraminal narrowing at C5-6 due to left-sided uncovertebral spurring. There was no high-grade central stenosis or cord compression. She sees [facility]. ROS: Constitutional: No unexplained weight loss, fever, chills or night sweats. +chronic fatigue Eyes: No vision changes, blurry vision, double vision, eye pain, eye redness, eye discharge. ENT: Baseline hearing loss of the right ear, no left-sided hearing loss, no ear pain, no sneezing, congestion, runny nose or sore throat. Neurologic: No syncope, seizures, tremors, weakness or ataxia. Denies headache. Hematologic/Lymphatics: No bleeding or bruising. No painful lymph nodes. Endocrine: No cold or heat intolerance. No polyuria or polydipsia. Psychiatric: Denies depression and anxiety Physical exam: Constitutional: Alert, in no distress. Eyes: Pupils are equal, round and reactive to light. Extraocular muscles intact. Ear, Nose and Throat: Small amount of residual brown cerumen in the canals. No swelling, redness or discharge in the canals. TMs normal. Mastoids nontender. Normal nasal mucosa. No nasal discharge. No oropharyngeal erythema or exudates. Neck: Supple, Full range of motion. No lymphadenopathy. Respiratory: Clear to auscultation. Cardiovascular: S1 S2 regular. No murmurs. Neurologic: No focal neurological deficits. Symmetric patellar reflexes. Moves all extremities spontaneously. Sensation intact bilaterally. Upper and lower extremity strength 5/5 bilaterally. Extremities: Warm and well perfused. No clubbing, cyanosis or edema. 3+ peripheral pulses bilaterally. Psychiatric: Normal mood and affect [facility] Medical History (Updated 12/21/24 @ 08:26 by MIR Dugan) Numbness and tingling of both lower extremities White matter abnormality on MRI of brain Bilateral carpal tunnel syndrome GERD (gastroesophageal reflux disease) Routine physical examination Neoplasm of skin Neuroforaminal stenosis of cervical spine Tinea versicolor Decreased leukocytes High serum ferritin Paresthesia Abdominal bloating Cervical dysplasia Fatigue Deafness in right ear Meniere disease Surgical History Hx of breast implants, bilateral Family History Maternal Aunt Breast cancer Social History (Updated 12/20/24 @ 10:20 by Irasema Head MA) Household Members: Spouse and Children Housing: House Are you a primary account executive healthcare to a significant other at home: No Do you presently have visiting nurse or other home services: No Alcohol intake: former Patient Tobacco Use Status: Never used Tobacco e-Cigarette/Vaping Use: Never Used Second Hand Smoke Exposure: No service: No Current occupational status: employed Current occupation: [id number] Current occupational exposures/hazards: Yes Cognitive needs: No Hearing needs: Yes (deaf in right ear) Vision needs: No Questionnaire Thrive Questionnaire Date Thrive assessed: 07/26/24 I am a: Patient What is your living situation today?: I have a steady place to live Within the past 12 months, did the food you bought not last and you didn't have the money to get more?: Never true Within the past 12 months, did you worry whether your food would run out before you got money to buy more?: Never true Do you have trouble paying for medicines?: No Do you have trouble getting transportation to medical appointments?: No Do you have trouble paying your heating and electricity bill?: No Do you have trouble taking care of your child, family member or friend?: No Do you have trouble with day-to-day activities such as bathing, preparing meals, shopping, managing finances, etc.?: No Are you currently unemployed and looking for a job?: No Are you interested in more education?: No Please select the resources that you would like help with: None Currently or been in a relationship where the following occur: No concerns reported THRIVE Score: 0 EVANGELINA-7 AMB Questionnaire EVANGELINA-7 Date EVANGELINA - 7 assessed: 07/26/24 Source: Developed by Drs. Matteo Chan, Lucretia B.W. Mickey Arciniega and colleagues, with an educational deanne from [employer]. Physical exam (Primary Care) Vital Signs: Last Vital Signs Temp 98.6 F 12/20/24 10:20 Pulse 63 12/20/24 10:20 BP 100/68 12/20/24 10:20 Pulse Ox 100 12/20/24 10:20 Oxygen Delivery Method Room Air 12/20/24 10:20 BMI result Body Mass Index 19.9 Tobacco/Smoking Status: Tobacco use Status Tobacco use date assessed 12/20/24 12/20/24 10:22 Patient Tobacco Use Status Never used Tobacco 12/20/24 10:20 e-Cigarette/Vaping Use Never Used 12/20/24 10:20 Thrive Assessment: Date of Thrive Assessment Date Thrive assessed 07/26/24 12/20/24 10:17 Currently or been in a relationship where the following occur: No concerns reported Coding Level of Care Code Est Pt Level 4 (89856) Complex EM visit Add On G2211 Diagnoses Neuroforaminal stenosis of cervical spine M48.02 High serum ferritin R79.89 Lymphopenia D72.810 Leukopenia type: lymphocytopenia White matter abnormality on MRI of brain R90.82 Numbness and tingling of both lower extremities R20.0; R20.2 Deafness in right ear H91.91 Assessment & Plan Assessment & Plan (1) Neuroforaminal stenosis of cervical spine: Code(s): M48.02 - Spinal stenosis, cervical region Category: Medical Plan: Patient is managed at [facility] and doing physical therapy. (2) High serum ferritin: Code(s): R79.89 - Other specified abnormal findings of blood chemistry Category: Medical Plan: Evaluated by Hematology. She has a follow up appointment scheduled. Heterozygous for hemochromatosis gene mutation. Continue avoidance of iron supplements and alcohol. (3) Decreased leukocytes: Code(s): D72.819 - Decreased white blood cell count, unspecified Category: Medical Qualifiers: Leukopenia type: lymphocytopenia Qualified Code(s): D72.810 - Lymphocytopenia Plan: Evaluated by Hematology and thought to be benign. Monitor. (4) White matter abnormality on MRI of brain: Code(s): R90.82 - White matter disease, unspecified Category: Medical Plan: Extensive workup thus far. Given chronic fatigue and paresthesias in lower extremity with unknown etiology I am referring her to [facility] for further evaluation, specifically to rule out MS. (5) Numbness and tingling of both lower extremities: Code(s): R20.0 - Anesthesia of skin; R20.2 - Paresthesia of skin Category: Medical (6) Deafness in right ear: Code(s): H91.91 - Unspecified hearing loss, right ear Category: Medical Plan: Referred to [facility]. Plan Follow up in 3 months. Orders: Orders TSH reflex Free T4 12/20/24 G56.03 - Carpal tunnel syndrome, bilateral upper limbs, R20.2 - Paresthesia of skin, R53.82 - Chronic fatigue, unspecified, R79.89 - Other specified abnormal findings of blood chemistry Vitamin B12 and Folate 12/20/24 G56.03 - Carpal tunnel syndrome, bilateral upper limbs, R20.2 - Paresthesia of skin, R53.82 - Chronic fatigue, unspecified, R79.89 - Other specified abnormal findings of blood chemistry IRON PROFILE 12/20/24 G56.03 - Carpal tunnel syndrome, bilateral upper limbs, R20.2 - Paresthesia of skin, R53.82 - Chronic fatigue, unspecified, R79.89 - Other specified abnormal findings of blood chemistry Complete Blood Count Auto Diff 12/20/24 G56.03 - Carpal tunnel syndrome, bilateral upper limbs, R20.2 - Paresthesia of skin, R53.82 - Chronic fatigue, unspecified, R79.89 - Other specified abnormal findings of blood chemistry Comprehensive Met. Panel 12/20/24 G56.03 - Carpal tunnel syndrome, bilateral upper limbs, R20.2 - Paresthesia of skin, R53.82 - Chronic fatigue, unspecified, R79.89 - Other specified abnormal findings of blood chemistry Magnesium 12/20/24 G56.03 - Carpal tunnel syndrome, bilateral upper limbs, R20.2 - Paresthesia of skin, R53.82 - Chronic fatigue, unspecified, R79.89 - Other specified abnormal findings of blood chemistry C Reactive Protein 12/20/24 G56.03 - Carpal tunnel syndrome, bilateral upper limbs, R20.2 - Paresthesia of skin, R53.82 - Chronic fatigue, unspecified, R79.89 - Other specified abnormal findings of blood chemistry Ferritin 12/20/24 G56.03 - Carpal tunnel syndrome, bilateral upper limbs, R20.2 - Paresthesia of skin, R53.82 - Chronic fatigue, unspecified, R79.89 - Other specified abnormal findings of blood chemistry Referrals Neurology Referral R20.2 - Paresthesia of skin, R53.82 - Chronic fatigue, unspecified, R90.82 - White matter disease, unspecified Ear/Nose/Throat Referral H91.91 - Unspecified hearing loss, right ear
[2024-12-20 10:20] VITALS: BP 100/68; PULSE 63; TEMP 37; O2SAT 100; BMI 19.9
--- OUTSIDE RECORDS SUMMARY | 2024-12-20 10:48 | XMS_ITS | Encounter Summary ---
Author Organization [facility] Address [address] [place] [id number] Care Team Providers Care Sand Screener Name Role Phone Physician, Pcp Unknown Primary Care Provider Kenyetta vailable Encounter Details Date Type Department Care Team (Latest Contact Info) Description 09/10/2024 Lab Requisition [facility] - Main Lab [address] [facility] [place] [address] Ambrocio De Paz MD [address] [address] Encounter for gynecological examination (general) [...] lesion or malignancy 09/13/2024 2:00 PM EDT [facility] General Categorization Negative 09/13/2024 2:00 PM EDT [facility] Specimen Adequacy Satisfactory for evaluation, endocervical/elias sformation zone component absent 09/13/2024 2:00 PM EDT [facility] Pap Methodology Liquid Based Pap Test 09/13/2024 2:00 PM EDT [facility] Disclaimer The Pap test is a screening test which carries an inherent false negative rate. These test results should be correlated with the patient's clinical findings and history. This Pap test was processed using an automated screening system. Technical cytopathology services provided by [facility], at [address] [place] [address] (CLIA # [id number]/Kaylin Figueredo MD, Pulp Drier Firer.) 09/13/2024 2:00 PM EDT [facility] Console Pap Interpretation Reported 09/13/2024 2:00 PM EDT [facility] Brushing/Spatula Cervix uteri structure / Unknown 09/09/2024 09/10/2024 6:59 AM EDT us Ambrocio De Paz MD LAB CYTOLOGY ORDERABLES Final Result [facility] [address] [place] [address], documented in this encounter Visit Diagnoses Diagnosis Encounter for gynecological examination (general) (routine) without abnormal findings documented in this encounter Care Teams Sand Screener Relationship Specialty Start Date End Date Physician, Pcp Unknown PCP - General 09/10/24 documented as of this encounter
== END 2024-12-20 10:50 | disposition home or self-care (01) ==
LOC: HO.HMCFM 10:10
PROVIDERS: PCP Physician Assistant Medical; Visit Provider Physician Assistant Medical
DX: M48.02 Spinal stenosis, cervical region (principal); R79.89 Other specified abnormal findings of blood chemistry; D72.810 Lymphocytopenia; R90.82 White matter disease, unspecified; R20.0 Anesthesia of skin; R20.2 Paresthesia of skin; H91.91 Unspecified hearing loss, right ear

== ENCOUNTER 2024-12-20 11:31 | Outpatient (REF) | payer OTHER, SELFPAY ==
[2024-12-20 14:40] LABS: MANUAL DIFF FLAG NO
[2024-12-20 14:51] LABS: Basophils Absolute Auto 0.1 X10*3/uL (0.0-0.2); Basophils Percent Auto 2.5 % (0-2); Eosinophils Absolute Auto 0.1 X10*3/uL (0.0-0.4); Eosinophils Percent Auto 2.1 % (0-4); Hemoglobin 11.9 g/dl (12.0-16.0); Imm Gran Pct Auto 2.1 % (0.0-0.4); Lymphocytes Absolute Auto 1.2 X10*3/uL (1.2-4.9); Lymphocytes Percent Auto 24.9 % (20-40); Mean Corpuscular HGB Conc 33.1 g/dl (31.0-35.0); Mean Corpuscular Hemoglobin 28.5 pg (27.0-33.0); Mean Corpuscular Volume 86.3 fL (80.0-98.0); Mean Platelet Volume 10.4 fL (9.4-12.3); Monocytes Absolute Auto 0.4 X10*3/uL (0.1-1.2); Monocytes Percent Auto 7.9 % (2-11); Neutrophils Absolute Auto 2.9 x10*3/uL (2.0-8.3); Neutrophils Percent Auto 60.5 % (45-73); Platelet Count 346 X10*3/uL (160-400); Red Blood Count 4.17 X10*6/uL (4.20-5.50); Red Cell Distribution Width 13.1 % (11.0-16.0); White Blood Count 4.8 X10*3/uL (4.8-10.8)
[2024-12-20 15:09] LABS: Alanine Aminotransferase 62 U/L (0-31); Albumin Level 4.3 g/dL (3.5-5.0); Alkaline Phosphatase 62 U/L (39-117); Anion Gap 10 (12-20); Aspartate Amino Transferase 43 U/L (5-31); Bilirubin Total 0.3 mg/dL (0.0-1.0); Blood Urea Nitrogen 14 mg/dL (9-16); C Reactive Protein < 0.10 mg/dL (< or = 0.50); Calcium 9.3 mg/dL (8.4-10.2); Carbon Dioxide 29 mmol/L (22-29); Chloride 107 mmol/L (96-108); Estimated Glomerular Filt Rate > 60; Glucose Random 98 mg/dL (60-115); Iron 51 mcg/dL (30-160); Percent Iron Saturation 25 % (15-50); Sodium 142 mmol/L (135-145); Total Iron Binding Capacity 206 mcg/dL (228-428); Total Protein 6.9 g/dL (6.5-8.0); Unsaturated Iron Binding 155 ug/dL
[2024-12-20 15:30] LABS: Ferritin 215 ng/mL (10-122); TSH reflex Free T4 0.88 uIU/mL (0.32-4.0)
[2024-12-20 15:35] LABS: Vitamin B12 514 pg/mL (200-900)
== END 2024-12-20 11:32 | disposition home or self-care (01) ==
LOC: HO.WFDLDS 11:31
PROVIDERS: Visit Provider Physician Assistant Medical
DX: G56.03 Carpal tunnel syndrome, bilateral upper limbs (principal); R53.82 Chronic fatigue, unspecified; R79.89 Other specified abnormal findings of blood chemistry; R20.2 Paresthesia of skin
CPT/HCPCS: 36415; 80053; 82607; 82728; 82746; 83540; 83735; 84443; 85025; 86140

== ENCOUNTER 2025-01-26 09:16 | Outpatient (REF) | payer OTHER, SELFPAY ==
--- NOTE | ~2025-01-26 | US_ITS ---
CLINICAL HISTORY: R74.8 - Abnormal levels of other serum enzymes US abdomen complete Comparison: None provided Findings: The visualized pancreas is normal. The aorta and inferior vena cava are normal caliber. The liver is enlarged measuring 16.6 cm. Right lobe length is 16.6 cm. There is no intrahepatic bile duct dilatation. The common duct is 5 mm in diameter. The gallbladder is normal. There is no sonographic Sawyer sign. The main portal vein is antegrade. The right kidney is 11.1 cm in length. The left kidney is 12 cm in length. The spleen is 9.9 cm in length. No ascites. IMPRESSION: 1. Normal complete abdominal ultrasound. This document has been electronically signed by: Kamryn Linares MD on 01/26/2025 14:45:24
--- OUTSIDE RECORDS SUMMARY | 2025-01-26 09:36 | XMS_ITS | Encounter Summary ---
Author Organization [facility] Address [address] [place] [phone] Care Team Providers Care Box Finisher Name Role Phone Physician, Pcp Unknown Primary Care Provider Kenyetta vailable Encounter Details Date Type Department Care Team (Latest Contact Info) Description 09/10/2024 Lab Requisition [facility] - Main Lab 299 [facility] [place] [address] Ambrocio De Paz MD [address] [address] Encounter for gynecological examination (general) [...] lesion or malignancy 09/13/2024 2:00 PM EDT [facility] General Categorization Negative 09/13/2024 2:00 PM EDT [facility] Specimen Adequacy Satisfactory for evaluation, endocervical/elias sformation zone component absent 09/13/2024 2:00 PM EDT [facility] Pap Methodology Liquid Based Pap Test 09/13/2024 2:00 PM EDT [facility] Disclaimer The Pap test is a screening test which carries an inherent false negative rate. These test results should be correlated with the patient's clinical findings and history. This Pap test was processed using an automated screening system. Technical cytopathology services provided by [facility], at [address] [place] [address] (CLIA # [id number]/Kaylin Figueredo MD, Aerosol Line Operator.) 09/13/2024 2:00 PM EDT [facility] Console Pap Interpretation Reported 09/13/2024 2:00 PM EDT [facility] Brushing/Spatula Cervix uteri structure / Unknown 09/09/2024 09/10/2024 6:59 AM EDT us Ambrocio De Paz MD LAB CYTOLOGY ORDERABLES Final Result [facility] [address] [place] [address], documented in this encounter Visit Diagnoses Diagnosis Encounter for gynecological examination (general) (routine) without abnormal findings documented in this encounter Care Teams Box Finisher Relationship Specialty Start Date End Date Physician, Pcp Unknown PCP - General 09/10/24 documented as of this encounter
== END 2025-01-26 09:17 | disposition home or self-care (01) ==
LOC: HO.US 09:16
PROVIDERS: PCP Physician Assistant Medical; Visit Provider Physician Assistant Medical
DX: R14.0 Abdominal distension (gaseous) (principal); R74.8 Abnormal levels of other serum enzymes
CPT/HCPCS: 76700

== ENCOUNTER → 2025-01-26 09:23 | Outpatient (BNV) | payer OTHER, SELFPAY | PROVIDERS: PCP Physician Assistant Medical; Visit Provider Radiology Diagnostic Radiology | DX: R74.01 Elevation of levels of liver transaminase levels (principal) | CPT/HCPCS: 76700 ==

== ENCOUNTER 2025-06-06 13:34 | Outpatient (AMB) | payer OTHER, SELFPAY ==
--- NOTE | 2025-06-06 13:43 | A.OFFPC_ITS ---
Vital Signs 06/06/25 13:48 Height 5 ft 7 in Weight 126 lb 8 oz BMI 19.8 BP 106/62 Blood Pressure Location Rt brachial Position Sitting Respiration 16 Pulse 99 Pulse Source Pulse Oximeter Temp 98.6 F Temp Source Temporal Artery Scan Pulse Oximetry (%) 99 Oxygen Delivery Method Room Air Intake Visit Reasons: ER F/U on 05/15 from [facility] Re: Blood in Stool Intake Note: Piedad presents in the office today for an ED follow up. Title Search Manager Required: No Is last menstrual period known: Yes Last menstrual period: 04/06/25 Post menopausal: No Patient : No Allergies No Known Allergies (No Known Allergies*) Allergy (Verified 06/06/25 13:46) Tobacco use date assessed: 06/06/25 Dental Screening Dental Screen Date: 06/06/25 Did you have a dental visit in the last 12 months?: Yes Did you have a dental problem in the last 6 months where you did not have access to dental care?: No Was dental information given to patient?: Patient has dentist HPI HPI Comments History of Present Illness Details This is a 39-year-old female with a past medical history of Meniere's disease, deafness in the right ear, paresthesias, elevated serum ferritin and leukopenia presenting for follow up. She was seen at the ER at [facility] on 05/15/2025. She had concerns of ongoing occipital headaches, numbness and tingling in her hands, upper and lower extremities as well as severe abdominal bloating. She went to the ER that day because when she had a bowel movement that morning there was a large amount of blood in the toilet bowl. She noted nausea, decreased appetite and generalized fatigue as well as bone pain. She had a CT of the abdomen and pelvis with IV contrast which showed no acute findings. She had light pink blood in the toilet bowl for 2 days after, and this resolved. No pain or straining with bowel movements. Denies constipation. Patient had Gastroenterology evaluation in [place] with endoscopy on 04/22/2024 for reflux and bloating which continues. She has been treated with famotidine. No known allergies. Denies weight loss. She is concerned because 2 of her friends were recently diagnosed with late stage cancer after having similar symptoms. At the ED she also had a CT of the head and brain without contrast did not reveal any acute intracranial abnormality. Patient endorses headache in the back of the head on the left side daily for the past 2 months which is new. It feels like something is hitting her in the head. No trauma, vision changes, dizziness or syncope. Taking efwe-wcp-fvohfxn pain relievers like Tylenol and ibuprofen do not alleviate symptoms. She was referred to [facility]rology for numbness, tingling and fatigue. She will call to schedule this appointment. She was found to have carpal tunnel syndrome, but no cause was found for paresthesias in her legs. She was previously evaluated by Dr. James, [facility]rology. Symptoms began 4 years ago. They are intermittent. She also endorsed chronic fatigue and hand cramping. Testing for Lyme was negative. Hemoglobin A1c was normal. She had an EMG on 07/01/2024 which showed bilateral carpal tunnel syndrome. She also had an MRI of the cervical spine and brain with and without contrast on 06/01/2024. It demonstrated a few small hyperintense foci in the subcortical white matter, no evidence of demyelinating disease in the cervical spinal cord and severe left-sided neural foraminal narrowing at C5-6 due to left-sided uncovertebral spurring. There was no high-grade central stenosis or cord compression. She saw [facility] for evaluation. 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 I referred her for a 2nd opinion in [place]. This appointment has not happened yet, but she took the contact information to call and schedule today. The patient is followed by Hematology. She had hyperferritinemia with normal iron saturation and serum iron level. Liver functions are normal. 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 Leukopenia is mild and thought to be benign. ROS: Constitutional: No unexplained weight loss, fever, chills or night sweats. +chronic fatigue Eyes: No vision changes, blurry vision, double vision, eye pain, eye redness, eye discharge. ENT: Baseline hearing loss of the right ear, no left-sided hearing loss, no ear pain, no sneezing, congestion, runny nose or sore throat. Neurologic: No syncope, seizures, tremors, weakness or ataxia. See HPI Hematologic/Lymphatics: No bleeding or bruising. No painful lymph nodes. Endocrine: No cold or heat intolerance. No polyuria or polydipsia. Psychiatric: Denies depression and anxiety Physical exam: Constitutional: Alert, in no distress. Head: Normocephalic. Nontender to palpation. No visible or palpable deformity. Eyes: Pupils are equal, round and reactive to light. Extraocular muscles intact. Ear, Nose and Throat: Canals clear. TMs normal. Normal nasal mucosa. No nasal discharge. No oral lesions. Neck: Supple, Full range of motion. No lymphadenopathy. No palpable thyroid masses. Respiratory: Clear to auscultation. Cardiovascular: S1 S2 regular. No murmurs. Gastrointestinal: Abdomen soft, non-tender, non-distended. Normal bowel sounds. No palpable masses. Neurologic:?Alert and oriented x 3, no focal deficits observed, mppqht-vfhj-yfhdpr normal, strength UE and LE 5/5 bilaterally, reflexes equal and symmetric.? Normal gait.? Patient able to heel walk, toe walk and walk heel-to-toe across the floor.? No pronator drift.? Negative Romberg. Musculoskeletal: No gross deformities. Normal range of motion. Extremities: Warm and well perfused. No clubbing, cyanosis or edema. Psychiatric: Normal mood and affect [facility] Medical History (Updated 06/06/25 @ 14:03 by MIR Dugan) BRBPR (bright red blood per rectum) Elevated liver enzymes Numbness and tingling of both lower extremities White matter abnormality on MRI of brain Bilateral carpal tunnel syndrome GERD (gastroesophageal reflux disease) Routine physical examination Neoplasm of skin Neuroforaminal stenosis of cervical spine Tinea versicolor Decreased leukocytes High serum ferritin Paresthesia Abdominal bloating Cervical dysplasia Fatigue Deafness in right ear Meniere disease Surgical History Hx of breast implants, bilateral Family History (Updated 06/06/25 @ 13:48 by Irasema Head [facility]) Maternal Aunt Breast cancer Social History (Updated 06/06/25 @ 13:48 by Irasema Head NURSE REVIEWER) Household Members: Spouse and Children Housing: House Are you a primary manager of care to a significant other at home: No Do you presently have visiting nurse or other home services: No Alcohol intake: former Patient Tobacco Use Status: Never used Tobacco e-Cigarette/Vaping Use: Never Used Second Hand Smoke Exposure: No service: No Current occupational status: employed Current occupation: [employer] Current occupational exposures/hazards: Yes Cognitive needs: No Hearing needs: Yes (deaf in right ear) Vision needs: No Female Reproductive History Menstrual Date of last menstrual period: 04/06/25 Questionnaire Thrive Questionnaire Date Thrive assessed: 07/26/24 I am a: Patient What is your living situation today?: I have a steady place to live Within the past 12 months, did the food you bought not last and you didn't have the money to get more?: Never true Within the past 12 months, did you worry whether your food would run out before you got money to buy more?: Never true Do you have trouble paying for medicines?: No Do you have trouble getting transportation to medical appointments?: No Do you have trouble paying your heating and electricity bill?: No Do you have trouble taking care of your child, family member or friend?: No Do you have trouble with day-to-day activities such as bathing, preparing meals, shopping, managing finances, etc.?: No Are you currently unemployed and looking for a job?: No Are you interested in more education?: No Please select the resources that you would like help with: None Currently or been in a relationship where the following occur: No concerns reported THRIVE Score: 0 EVANGELINA-7 AMB Questionnaire EVANGELINA-7 Date EVANGELINA - 7 assessed: 07/26/24 Source: Developed by Drs. Matteo Chan, Lucretia Arciniega, Mickey Mercer and colleagues, with an educational deanne from [employer]. Physical exam (Primary Care) Vital Signs: Last Vital Signs Temp 98.6 F 06/06/25 13:48 Pulse 99 06/06/25 13:48 Resp 16 06/06/25 13:48 BP 106/62 06/06/25 13:48 Pulse Ox 99 06/06/25 13:48 Oxygen Delivery Method Room Air 06/06/25 13:48 BMI result Body Mass Index 19.8 Tobacco/Smoking Status: Tobacco use Status Tobacco use date assessed 06/06/25 06/06/25 13:50 Patient Tobacco Use Status Never used Tobacco 06/06/25 13:48 e-Cigarette/Vaping Use Never Used 06/06/25 13:48 Thrive Assessment: Date of Thrive Assessment Date Thrive assessed 07/26/24 06/06/25 13:45 Currently or been in a relationship where the following occur: No concerns reported Coding Level of Care Code Est Pt Level 5 (67407) Add On Problem Visit Only Diagnoses Neuroforaminal stenosis of cervical spine M48.02 High serum ferritin R79.89 Lymphopenia D72.810 Leukopenia type: lymphocytopenia White matter abnormality on MRI of brain R90.82 Numbness and tingling of both lower extremities R20.0; R20.2 Deafness in right ear H91.91 BRBPR (bright red blood per rectum) K62.5 Abdominal bloating R14.0 New daily persistent headache G44.52 Time Spent (min) 50 Comment Reviewing record, direct patient care, completing documentation Assessment & Plan Assessment & Plan (1) Neuroforaminal stenosis of cervical spine: Code(s): M48.02 - Spinal stenosis, cervical region Category: Medical Plan: Patient is managed at [facility] and doing physical therapy. (2) High serum ferritin: Code(s): R79.89 - Other specified abnormal findings of blood chemistry Category: Medical Plan: Evaluated by Hematology. Monitor labs. Heterozygous for hemochromatosis gene mutation. Continue avoidance of iron supplements and alcohol. (3) Decreased leukocytes: Code(s): D72.819 - Decreased white blood cell count, unspecified Category: Medical Qualifiers: Leukopenia type: lymphocytopenia Qualified Code(s): D72.810 - Lymphocytopenia Plan: Evaluated by Hematology and thought to be benign. Monitor. (4) White matter abnormality on MRI of brain: Code(s): R90.82 - White matter disease, unspecified Category: Medical Plan: Patient will contact [facility] to schedule consult given ongoing fatigue, paresthesias and white matter abnormalities on prior MRI. It has been more than 1 year since her last MRI so I will order this to see if there has been progression that might be indicative of demyelinating disease like multiple sclerosis. (5) Numbness and tingling of both lower extremities: Code(s): R20.0 - Anesthesia of skin; R20.2 - Paresthesia of skin Category: Medical (6) Deafness in right ear: Code(s): H91.91 - Unspecified hearing loss, right ear Category: Medical Plan: She will contact [facility] to schedule consult. (7) BRBPR (bright red blood per rectum): Code(s): K62.5 - Hemorrhage of anus and rectum Category: Medical Plan: Possible hemorrhoidal bleeding. She has ongoing concerns about abdominal bloating. Endoscopy did not show a reason for symptoms. CT abdomen and pelvis also did not explain the symptoms. Referred to [facility] Gastroenterology for consideration of colonoscopy. (8) Abdominal bloating: Code(s): R14.0 - Abdominal distension (gaseous) Category: Medical (9) New daily persistent headache: Code(s): G44.52 - New daily persistent headache (NDPH) Plan: We will obtain MRI since CT did not show any recent for symptoms. Plan Follow up in 3 months. Orders: Orders Complete Blood Count Auto Diff Today K62.5 - Hemorrhage of anus and rectum, R14.0 - Abdominal distension (gaseous) Amylase Today K62.5 - Hemorrhage of anus and rectum, R14.0 - Abdominal distension (gaseous) Lipase Today K62.5 - Hemorrhage of anus and rectum, R14.0 - Abdominal di stension (gaseous) Ferritin Today D64.9 - Anemia, unspecified, K62.5 - Hemorrhage of anus and rectum, R14.0 - Abdominal distension (gaseous) IRON PROFILE Today D64.9 - Anemia, unspecified, K62.5 - Hemorrhage of anus and rectum, R14.0 - Abdominal distension (gaseous) Referrals Gastroenterology Referral K62.5 - Hemorrhage of anus and rectum, R14.0 - Abdominal distension (gaseous)
[2025-06-06 13:48] VITALS: BP 106/62; PULSE 99; RESP 16; TEMP 37; O2SAT 99; BMI 19.8
--- OUTSIDE RECORDS SUMMARY | 2025-06-06 19:46 | XMS_ITS | Continuity of Care Document ---
Author Organization [facility], [facility] Address [address] [place] [address] Care Team Providers Care Monorail Crane Operator Name Role Phone PIERRE CARROLL Primary Care Provider JENNIFER DAVIDSON Primary Care Provider Assessment Encounter Date Assessment Date Assessment LastModified by Organization Details LastModified Time 03/23/2025 03/23/2025 39-year-old female presents for cerumen removal. Cerumen removed bilaterally. TMs normal to inspection. Follow-up in 3 months for repeat procedure. All questions were answered. [email or web address] Not available 03/23/2025 16:09:42 Plan of Treatment Reminders Order Date Submit Date Provider Last Modified By Organization Details Last Modified Time Details Appointments Establish ed 15 2025 01:30P M JANETTE PRESSLEY PA-C Not available Not available Not available Hearing Test 2025 09:00A M Hearing Test Not available Not available Not available Lab None recorded. Referral None recorded. Procedures None recorded. Surgeries None recorded. Imaging None recorded. Medication Orders None recorded. Patient TargetsNo targets recorded. Patient InstructionsNo instructions recorded. Reason for Referral None Reported. 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 Active 2020 Sudden idiopathi c hearing loss, right ear; Note: Date Diagnosed : 10/31/2020 2:51 PM (H91.21) Not Available [facility] 4 03:16:45 Sensorine ural hearing loss 49195254 Active 2020 Sensorine ural hearing loss, unilatera l, right ear, with unrestric blanca hearing on the contralat eral side; Note: Date Diagnosed : 11/14/2020 11:21 AM (H90.41) Sensori neural hearing loss, unilatera l, left ear, with unrestric blanca hearing on the contralat eral side; Note: Date Diagnosed : 10/31/2020 2:01 PM (H90.42) ; Start Date : Not Available [facility] 4 03:16:45 Otalgia of left ear 5775379387 Active 2020 Otalgia, left ear; Note: Date Diagnosed : 11/21/2020 9:53 AM (H92.02) Not Available [facility] 4 03:16:45 Impacted cerumen in left ear 21473324534 33323 Active 2022 Impacted cerumen, left ear; Note: Date Diagnosed : 01/28/2023 9:45 AM (H61.22) Not Available [facility] 4 03:16:45 Impacted cerumen of bilateral ears 76896537888 51148 Active 2023 JANETTE PRESSLEY PA-C [address] [facility],[place] [address], [place], [phone] , [facility] - [facility] 5 16:09:44 Sensorine ural hearing loss in right ear 49518708958 100 Active 2023 JANETTE PRESSLEY PA-C [address] [place] [address],[place] [address], [place], [phone] , [facility] - [facility] 5 16:10:10 Problem Notes None recorded. Procedures Surgical History Date Name Laterality Status Provider Name and Address Organization Details Recorded Time 5 Cerumen removal without microscope bilat completed JANETTE PRESSLEY PA-C [address] [facility],[place] [address], [place], [phone], [place] - [facility] [place] 03/23/2025 16:09:05 5 Cerumen removal without microscope bilat completed Kalina Love [place] - [facility] [place] 09/27/2024 09:59:19 4 Cerumen removal without microscope bilat completed JANETTE PRESSLEY PA-C [address] [facility],[place] [address], [place], [address], [place] - [facility] 05/17/2024 14:21:55 4 Air & Speech Audio with Tymps - 16684, 27550 & 78500 completed Rowena Edmonds [place] - [facility] [place] 05/17/2024 14:35:39 4 Cerumen removal without microscope bilat completed Kalina Love [place] - [facility] 03/29/2024 09:37:08 4 Cerumen removal without microscope bilat completed JANETTE PRESSLEY PA-C [address] [facility] [address], [place], [address], [facility] - [facility] 01/13/2024 12:13:55 Imaging Results None recorded. Procedure Notes None recorded. Medical Equipment None Reported. Allergies No known drug allergies Medications Name Sig Start Date Stop Date Status Note LastModified by Organization Details LastModified Time prednison e 10 mg tablet 09/27 completed Medicati on ID: [id number] D uration Value: 14 Prescri bed By [...] ne Not Available Not Available Not Available tretinoin 0.025 % topical cream APPLY TO MOLLUSCU M STARTING 3 NIGHTS A WEEK AND SLOWLY INCREASE TOLERATE D AT BEDTIME 03/23 completed Not Available Not Available Not Available famotidin e 40 mg tablet TAKE 1 TABLET BY MOUTH TWICE DAILY 03/23 completed Not Available Not Available Not Available Zofran 4 mg tablet 1 tablet by mouth 09/27 completed Medicati on ID: [id number] D uration Value: 7 Prescri bed By Name: Akila gunter MD Brand Name: Hema Gunter end Method: E-Prescr ibed Sub s Allowed: subs OK Medic ationGen ericName : Zofran Not Available Not Available Not Available acyclovir 5 % topical ointment APPLY 1 BEAD TOPICALL Y THREE TIMES DAILY 03/23 completed Not Available Not Available Not Available omeprazol e 20 mg capsule,d elayed release TAKE 1 CAPSULE BY MOUTH DAILY 30 MINUTES BEFORE A MEAL 09/27 completed Not Available Not Available Not Available ketoconaz ole 2 % topical cream APPLY TOPICALL Y TO THE AFFECTED AREA TWICE DAILY 03/23 completed Not Available Not Available Not Available amoxicill in 875 mg-potass ium clavulana te 125 mg tablet 01/28 completed Medicati on ID: [id number] B rand Name: amoxicil angela-pot clavulan ate Send Method: E-Prescr ibed Sub s Allowed: subs OK Speci al Instruct ion: TAKE 1 TABLET BY MOUTH TWICE DAILY WITH FOOD FOR 10 DAYS Med icationG enericNa me: amoxicil angela-pot clavulan ate Not Available Not Available Not Available meclizine 25 mg chewable tablet 01/28 completed Medicati on ID: [id number] B rand Name: meclizin e Send Method: E-Prescr ibed Sub s Allowed: subs OK Speci al Instruct ion: CHEW 1 TABLET BY MOUTH EVERY 6 HOURS NEEDED FOR DIZZINES S OR NAUSEA M edicatio nGfarnaz Name: meclizin e Not Available Not Available Not Available Vitals Date Recorded Body height Body mass index (BMI) Body weight Provider Name and Address Organization Details Last Updated DateTime 03/23/2025 170.18 cm 19.6 kg/m2 28242.05 g Beryl Francis [place] - [facility] 03/23/2025 15:47:47 Social History None recorded. Functional Status None recorded. Mental Status None recorded. Family History Nothing Reported. Medical History No medical history recorded. Gynecological HistoryNo gynecological history recorded. Obstetrics History GPAL:G 0 P 0 0 0 0 Past Encounters Encounter ID Performer Location Encounter Start Date Encounter Closed Date Diagnosis/Indication Diagnosis SNOMED-CT Code Diagnosis ICD10 Code Diagnosis IMO Codes Diagnosis Note [id number] JANETTE PRESSLEY PA-C [facility] [address] [place] [address] 03/23/2025 15:36:38 03/23/2025 16:02:07 Impacted cerumen of bilateral ears [id number] 874406 H61.23 Sensorineu ral hearing loss in right ear 3122944448 9100 H90.41 Health Concerns Section Related Observation LastModified by Organization Detai ls LastModified Time None Recorded Concern Status LastModified by Organization Details LastModified Time None Recorded Payers Encounter Date Sequence Insurance Name Policy Number Policy Recio Covered Member ID Recio Member ID Guarantor Name 03/23/2025 1 [facility] [employer] [facility] TYPE [facility] (H[facility] [id number] Piedad Cooleyleilani [id number] Piedad Martin Notes Date Note Type Note Provider Name and Address Organization Details Recorded Time 03/23/2025 text/html ROS as noted in the HPI 39-year-old female presents for cerumen removal. She has history of unilateral hearing loss following sudden sensorineural hearing loss. Currently without amplification and doing well. ELOY AGUAYO MD [address] [place] [address], [phone], [facility] - [facility] 03/24/2025 08:30:10 OBGyn Episode No OBEpisode recorded.
--- OUTSIDE RECORDS SUMMARY | 2025-06-06 19:47 | XMS_ITS | Encounter Summary ---
Author Organization [facility] Address [address] [place] [address] Care Team Providers Care Snowboarding Instructor Name Role Phone Physician, No Pcp Primary Care Provider Unavaila ble Encounter Details Date Type Department Care Team (Latest Contact Info) Description 05/13/2025 Lab Requisition [facility] - Main Lab [address] [place] [address] Ambrocio De Paz MD [address] [phone] Encounter for gynecological examination (general) (routine) without abnormal findings Social History Tobacco Use Types Packs/Day Years Used Date Smoking Tobacco: Never Assessed Comments Unknown Sex and Gender Information Value Date Recorded Sex Assigned at Not on file Legal Sex Female 5:55 PM EST Gender Identity Not on file Sexual Orientation Not on file documented as of this encounter Plan of Treatment Upcoming Encounters Date Type Department Care Team (Late st Contact Info) Description 08/22/2025 10:45 AM EST Appointment [facility] [address] [place] [address] documented as of this encounter Procedures Procedure Name Priority Date/Time Associated Diagnosis Comments HPV WITH REFLEX GENOTYPE Routine 05/12/2025 12:00 AM EST Encounter for gynecological examination (general) (routine) without abnormal findings PAP SMEAR Routine 05/12/2025 12:00 AM EST Encounter for gynecological examination (general) (routine) without abnormal findings documented in this encounter Results * HPV with reflex genotype (05/12/2025 12:00 AM EST) HPV Negative Negative LAB MICROBIOLOGY METHOD 05/20/2025 4:08 PM EST [facility] Brushing/Spatula Cervix uteri structure / Unknown 05/12/2025 05/18/2025 2:40 PM EST Ambrocio De Paz MD LAB MOLECULAR DIAGNOSTICS PHILIP SONI Final Result [facility] [address] [place] [address], * (ABNORMAL) Pap smear (05/12/2025 12:00 AM EST) Interpretation Atypical squamous cells of undetermined significance(A) 05/18/2025 2:40 PM [facility] at 1440 EST General Categorization Epithelial cell abnormality, see interpretation 05/18/2025 2:40 PM [facility] Specimen Adequacy Satisfactory for evaluation, endocervical/tra nsformation zone component present 05/18/2025 2:40 PM [facility] Pap Methodology Liquid Based Pap Test 05/18/2025 2:40 PM [facility] Disclaimer The Pap test is a screening test which carries an inherent false negative rate. These test results should be correlated with the patient's clinical findings and history. This Pap test was processed using an automated screening system. Technical cytopathology services provided by [facility], at [address] [place] [address] (CLIA # [id number]/Link Figueredo MD, Metal Trades Instructor.) 05/18/2025 2:40 PM [facility] Console Pap Interpretation Reported 05/18/2025 2:40 PM [facility] Brushing/Spatula Cervix uteri structure / Unknown 05/12/2025 05/13/2025 7:59 AM EST us Ambrocio De Paz MD LAB CYTOLOGY ORDERABLES Final Result [facility] [address] [place] [address], documented in this encounter Visit Diagnoses Diagnosis Encounter for gynecological examination (general) (routine) without abnormal findings documented in this encounter Care Teams Snowboarding Instructor Relationship Specialty Start Date End Date Physician, No Pcp PCP - General 05/23/25 documented as of this encounter
--- OUTSIDE RECORDS SUMMARY | 2025-06-06 19:47 | XMS_ITS | Encounter Summary ---
Author Organization [facility] Address [address] [place] [address] Care Team Providers Care Medical Insurance Verifier Name Role Phone Physician, No Pcp Primary Care Provider Unavaila ble Encounter Details Date Type Department Care Team (Latest Contact Info) Description 09/10/2024 Lab Requisition [facility] - Main Lab [address] [place] [address] Ambrocio De Paz MD [address] [phone] Encounter for gynecological examination (general) (routine) without [...] AM EST Appointment [facility] at [facility] [address] [place] [phone] documented as of this encounter Procedures Procedure Name Priority Date/Time Associated Diagnosis Comments PAP SMEAR Routine 09/09/2024 12:00 AM EDT Encounter for gynecological examination (general) (routine) without abnormal findings documented in this encounter Results * Pap smear (09/09/2024 12:00 AM EDT) Interpretation Negative for intraepithelial lesion or malignancy 09/13/2024 2:00 PM EDT [facility] at 1400 EDT General Categorization Negative 09/13/2024 2:00 PM T [facility] Specimen Adequacy Satisfactory for evaluation, endocervical/elias sformation zone component absent 09/13/2024 2:00 PM T [facility] Pap [...] screening system. Technical cytopathology services provided by [facility], at [address] [place] [address] (CLIA # [id number]/Kaylin Figueredo MD, Title Curator.) 09/13/2024 2:00 PM T [facility] Console Pap Interpretation Reported 09/13/2024 2:00 PM [facility] Brushing/Spatula Cervix uteri structure / Unknown 09/09/2024 09/10/2024 6:59 AM EDT us Ambrocio De Paz MD LAB CYTOLOGY ORDERABLES Final Result [facility] [address] [place] [address], documented in this encounter Visit Diagnoses Diagnosis Encounter for gynecological examination (general) (routine) without abnormal findings documented in this encounter Care Teams Medical Insurance Verifier Relationship Specialty Start Date End Date Physician, No Pcp PCP - General 05/23/25 documented as of this encounter
--- OUTSIDE RECORDS SUMMARY | 2025-06-06 19:47 | XMS_ITS | Data Portability ---
Author Organization [place] [facility], [facility] Address [address] [address] Care Team Providers Care Cable Lacer Name Role Phone PIERRE CARROLL Primary Care Provider [phone] JENNIFER DAVIDSON Primary Care Provider Assessment Encounter Date Assessment Date Assessment LastModified by Organization Details LastModified Time 03/29/2024 03/29/2024 Cerumen successfully removed today without incident. Otologic exam otherwise unremarkable. Patient is medically cleared for hearing aid in the right ear. She will follow-up in 6 months with PA for cerumen removal. She understands to call in the interim with any issues that arise. Not available 03/29/2024 09:37:36 05/17/2024 05/17/2024 38-year-old [...] call with results and forward to neurologist. [email or web address] Not available 05/17/2024 15:25:21 06/10/2024 06/10/2024 Reviewed [...] handicap, a fitting of Phonak CROS (R) iprkwndo-ju-kva-c anal hearing devices is expected to provide [...] this time. [email or web address] Not available 06/11/2024 10:33:28 09/27/2024 09/27/2024 Cerumen successfully removed bilaterally, which patient tolerated well. Otologic exam otherwise unremarkable. Continue to follow with neurology for headache and abnormal brain MRI findings. Return here for annual audiometric testing. Call sooner with any issues or perceived change in hearing. Not available 09/27/2024 10:00:03 03/23/2025 03/23/2025 39-year-old female presents for cerumen removal. Cerumen removed bilaterally. TMs normal to inspection. Follow-up in 3 months for repeat procedure. All questions were answered. [email or web address] Not available 03/23/2025 16:09:42 Plan of Treatment [...] internal auditory canal, w/wo contrast 2023 024 [facility] [address] [place], [address], 05/31/2024 14:29:19 Medication Orders None recorded. Patient TargetsNo targets recorded. Patient InstructionsNo instructions recorded. Reason for Referral None Reported. Results Created Date Observation Date Name Description Value Unit Range Abnormal Flag Note LastModifiedBy Organization Detail LastModifiedTime 05/18/20 audio gram No observ ation record ed. [email or web address] Not Available 04/24 08:33:35 06/02/2006/01/2024 MRI, brain + inter nal audit ory canal , w/wo contr ast No observ ation record ed. [email or web address] [address] [place], [address], 06/18/2024 10:36:19 06/02/20 24 06/01/2024 MRI, brain + inter nal audit ory canal , w/wo contr ast No observ ation record ed. [address] [facility] [address] [facility] [place], [address], 06/04/2024 10:00:05 Result Notes None recorded. 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 Active 2020 Sudden idiopathi c hearing loss, right ear; Note: Date Diagnosed : 10/31/2020 2:51 PM (H91.21) Not Available [facility] 4 03:16:45 Sensorine ural hearing loss 06917117 Active 2020 Sensorine ural hearing loss, unilatera [...] Available [facility] 4 03:16:45 Otalgia of left ear 6524149375 Active 2020 Otalgia, left ear; Note: Date Diagnosed : 11/21/2020 9:53 AM (H92.02) Not Available [facility] 4 03:16:45 Impacted cerumen in left ear 40531997109 28257 Active 2022 Impacted cerumen, left ear; Note: Date Diagnosed : 01/28/2023 9:45 AM (H61.22) Not Available [facility] 4 03:16:45 Impacted cerumen of bilateral ears 91074818143 45947 Active 2023 JANETTE PRESSLEY PA-C [address],[place] [facility], [place], [address] , [place] - [facility] 5 16:09:44 Sensorine ural hearing loss in right ear 75566032949 100 Active 2023 JANETTE PRESSLEY PA-C [address], [place], [address] , [place] - [facility] 5 16:10:10 Problem Notes None recorded. Procedures Surgical History Date Name Laterality Status Provider Name and Address Organization Details Recorded Time 5 Cerumen removal without microscope bilat completed JANETTE PRESSLEY PA-C [address], [place], [address], [place] - [facility] 03/23/2025 16:09:05 5 Cerumen removal without microscope bilat completed Kalina Love [place] - [facility] 09/27/2024 09:59:19 4 Cerumen removal without microscope bilat completed JANETTE PRESSLEY PA-C [address], [place], [address], [place] [facility] 05/17/2024 14:21:55 4 Air & Speech Audio with Tymps - 02416, 22158 & 69555 completed Rowena Edmonds [place] - [facility] 05/17/2024 14:35:39 4 Cerumen removal without microscope bilat completed Kalina Love [place] - [facility] 03/29/2024 09:37:08 4 Cerumen removal without microscope bilat completed JANETTE PRESSLEY PA-C [address] [place] [address],[address], [address] [place] - [facility] 01/13/2024 12:13:55 Imaging Results None recorded. Procedure Notes None recorded. Medical Equipment None Reported. Allergies No known drug allergies Medications Name Sig Start Date Stop Date Status Note LastModified by Organization Details LastModified Time prednison e 10 mg tablet 09/27 completed Medicati on ID: [id number] D uration Value: 14 Prescri bed By [...] by mouth 09/27 completed Medicati on ID: [id number] D uration Value: 7 Prescri bed By [...] mg tablet 01/28 completed Medicati on ID: [id number] B rand Name: amoxicil angela-pot clavulan ate Send Method: E-Prescr ibed Sub s Allowed: subs OK Speci al Instruct ion: TAKE 1 TABLET BY MOUTH TWICE DAILY WITH FOOD FOR 10 DAYS Med icationG enericNa me: amoxicil angela-pot clavulan ate Not Available Not Available Not Available meclizine 25 mg chewable tablet 01/28 completed Medicati on ID: [id number] B rand Name: meclizin e Send Method: E-Prescr ibed Sub s Allowed: subs OK Speci al Instruct ion: CHEW 1 TABLET BY MOUTH EVERY 6 HOURS NEEDED FOR DIZZINES S OR NAUSEA M edicatio nGeneric Name: meclizin e Not Available Not Available Not Available Vitals Date Recorded Body height Body mass index (BMI) Body weight Provider Name and Address Organization Details Last Updated DateTime 09/27/2024 170.18 cm 19.4 kg/m2 32923.45 g Krystina Coffey [facility] 09/27/2024 09:27:12 Date Recorded Body height Body mass index (BMI) Body weight Provider Name and Address Organization Details Last Updated DateTime 03/23/2025 170.18 cm 19.6 kg/m2 19207.05 g Beryl Francis [facility] 03/23/2025 15:47:47 Date Recorded Body height Body mass index (BMI) Body weight Provider Name and Address Organization Details Last Updated DateTime 03/29/2024 170.18 cm 19.3 kg/m2 10539.86 g Castillo Ttoh [facility] 03/29/2024 09:22:07 Social History None recorded. Functional Status None recorded. Mental Status None recorded. Family History Nothing Reported. Medical History No medical history recorded. Gynecological HistoryNo gynecological history recorded. Obstetrics History GPAL:G 0 P 0 0 0 0 Past Encounters Encounter ID Performer Location Encounter Start Date Encounter Closed Date Diagnosis/Indication Diagnosis SNOMED-CT Code Diagnosis ICD10 Code Diagnosis IMO Codes Diagnosis Note [id number] JANETTE PRESSLEY PA-C [facility] [address] [address] 01/13/2024 10:33:43 01/13/2024 10:57:42 Sensorineural hearing loss 77947713 H90.41 H90.42 Impacted c erumen of bilateral ears 1345517899 862508 H61.23 KALINA LOVE PA-C [facility] [address] [address] 03/29/2024 09:17:21 03/29/2024 09:37:03 Sensorineural hearing loss 00117995 H90.41 H90.42 Impacted c erumen of bilateral ears 0333736552 851724 H61.23 [id number] JANETTE PRESSLEY PA-C [facility] [address] [address] 05/17/2024 13:12:12 05/18/2024 07:05:12 Impacted cerumen of bilateral ears 0885107808 264748 H61.23 Sensorineu ral hearing loss 70845415 H90.41 Audiologic al evaluation results: Right ear: No measurable hearing at audiometer limit. Left ear: Normal hearing with excellent word recognitio n. Tympanomet ry: Right Ear:Type A Left Ear:Type A Sudden idi opathic hearing loss 989690581 H91.21 [id number] Edgard PARSONS [facility] [address] [address] 06/10/2024 10:26:40 06/26/2024 08:50:15 Sensorineural hearing loss in right ear 4056811259 9100 H90.41 [id number] KALINA LOVE PA-C [facility] [address] [place] [address] 09/27/2024 09:21:28 09/27/2024 09:36:27 Impacted cerumen of bilateral ears 3023529950 823213 H61.23 Sudden idi opathic hearing loss 218084528 H91.21 [id number] JANETTE PRESSLEY PA-C [facility] 100 [place] [address] 03/23/2025 15:36:38 03/23/2025 16:02:07 Impacted cerumen of bilateral ears 0044296902 909049 H61.23 Sensorineu ral hearing loss in right ear 1508901653 9100 H90.41 Health Concerns Section Related Observation LastModified by Organization Detai ls LastModified Time None Recorded Concern Status LastModified by Organization Details LastModified Time None Recorded Advance Directives Directive None Recorded Payers Insurance Date Sequence Insurance Name Policy Number Policy Recio Covered Member ID Recio Member ID Guarantor Name 03/23/2025 1 [facility] [employer] [facility] [id number] Piedad Chaim Geras[place]uk [id number] Piedad Chaim Gerasimchuk 03/23/2025 1 [facility] [id number] Piedad Z DramaFeverasihuk [id number] Piedad Chaim Gerasimchuk Notes Date Note Type Note Provider Name and Address Organization Details Recorded Time 03/29/2024 text/html ROS as noted in the [facility] 38-year-old female presents for cerumen removal in advance of being fitted for hearing aids. She reports she has a fitting pending for the right ear at [facility]. She denies otalgia, otorrhea, and Q-tip use. YASMANI SMITH MD [address] [place] [address], [place], [address], [facility] - [facility] 03/29/2024 17:36:11 05/17/2024 text/html ROS as noted in the [facility] 38-year-old female with history of right sudden sensorineural hearing loss who unfortunately did not recover hearing presents for reevaluation. Has been reconsidering amplification. Tried to go to [facility] but they stated she needed medical clearance. Also said she had wax bilaterally. She has also been having some neurological issues including numbness of her hands and feet. Did have an MRI given profound hearing loss on the right side when she had her initial hearing loss but has not had one since. Working with a neurologist. YASMANI SMITH MD 100 [facility],[address], [address], [facility] 05/17/2024 17:00:51 06/10/2024 text/html Hearing Technolo gy HistoryReported by Patient Patient returned to our office for the initial fitting of CROS hearing system as a first time user of amplification. They have reported significant difficulty communicating in adverse listening situations and amplification has been recommended. Patient's case has been reviewed by an livestock trucker who has provided medical clearance for the use of hearing devices. Rowena metcalf [facility] 06/11/2024 10:34:12 09/27/2024 text/html ROS as noted in the [facility] 38-year-old female with history of right sudden sensorineural hearing loss who unfortunately did not recover hearing presents for reevaluation. She ended up opting against amplification. A spot was found on her brain MRI. She was told this likely represents headache and there is a plan to repeat in one year. Working with a neurologist. YASMANI SMITH MD 100 [facility],[address], [address], [facility] 09/27/2024 16:58:44 03/23/2025 text/html ROS as noted in the [facility] 39-year-old female presents for cerumen removal. She has history of unilateral hearing loss following sudden sensorineural hearing loss. Currently without amplification and doing well. ELOY AGUAYO MD [address] [facility] [address],[place] [address], [place], [address], [facility] 03/24/2025 08:30:10 OBGyn Episode No OBEpisode recorded.
--- OUTSIDE RECORDS SUMMARY | 2025-06-06 19:47 | XMS_ITS | Clinical Summary ---
Author Organization [facility] Address [address] [place] [address] Phone Care Team Providers Care [employer] Name Role Phone Physician, No Pcp Primary Care Provider Unavaila ble Encounters Date Type Department Care Team Description 05/13/2025 Lab Requisition [facility] - Main Lab [address] [facility] [place] [address] Ambrocio De Paz MD Encounter for gynecological examination (general) (routine) without abnormal findings from Last 3 Months Social History Tobacco Use Types Packs/Day Years Used Date Smoking Tobacco: Never Assessed Comments Unknown Sex and Gender Information Value Date Recorded Sex Assigned at Not on file Legal Sex Female 5:55 PM EST Gender Identity Not on file Sexual Orientation Not on file Plan of Treatment Upcoming Encounters Date Type Department Care Team (Late st Contact Info) Description 08/22/2025 10:45 AM EST Appointment Center For [facility] at [facility] [address] [place] [address] Health Maintenance Due Date Last Done Comments DTaP,Tdap,and Td Vaccines (1 - Tdap) 2004 Hepatitis B Vaccines (1 of 3 - 19+ 3-dose series) 2004 HPV Vaccines (1 - 3-dose SCD M series) 2012 Depression Screening 06/23/2024 HIV Screening 09/10/2024 Hepatitis C Screening 09/10/2024 Social Influencers of Health Screening 09/10/2024 COVID-19 Vaccine (1 - 2024-2 6 season) 2025 Influenza Vaccine (#1) 2025 Cervical Cancer Screening: HPV 05/12/2030 05/12/2025 RSV Immunization Adult Patie nts (1 - 1-dose 75+ series) 2060 HIB Vaccines Aged Out No longer eligi [...] patient's age to complete this topic Meningococcal B Vaccine Aged Out No l onger eligible based on patient's age to complete this topic Pneumococcal Vaccine: Pediat rics (0 to 5 Years) and At-Risk Patients (6 to 49 Years) Aged Out No longer eligi ble based on patient's age to complete this topic RSV Immunization Patients Un martha 20 months Aged Out No longer eligible b ased on patient's age to complete this topic Varicella Vaccines Aged Out No longer eligible based on patient's age to complete this topic Procedures Procedure Name Priority Date/Time Associated Diagnosis Comments PAP SMEAR Routine 05/12/2025 12:00 AM EST Encounter for gynecological examination (general) (routine) without abnormal findings HPV WITH REFLEX GENOTYPE Routine 05/12/2025 12:00 AM EST Encounter for gynecological examination (general) (routine) without abnormal findings from Last 3 Months Results * HPV with reflex genotype (05/12/2025 12:00 AM EST) Pathologist [facility] HPV Negative Negative LAB MICROBIOLOGY METHOD 05/20/2025 4:08 PM EST [facility] Brushing/Spatula Cervix uteri structure / Unknown 05/12/2025 05/18/2025 2:40 PM EST us Ambrocio De Paz MD LAB MOLECULAR DIAGNOSTICS PHILIP SONI Final Result [facility] [address] [place] [address], * (ABNORMAL) Pap smear (05/12/2025 12:00 AM EST) Pathologist [facility] Interpretation Atypical squamous cells of undetermined significance(A) 05/18/2025 2:40 PM EST [facility] at 1440 EST General Categorization Epithelial cell abnormality, see interpretation 05/18/2025 2:40 PM [facility] Specimen Adequacy Satisfactory for evaluation, endocervical/tra nsformation zone component present 05/18/2025 2:40 PM EST [facility] Pap Methodology Liquid Based Pap Test 05/18/2025 2:40 PM EST [facility] Disclaimer The Pap test is a screening test which carries an inherent false negative rate. These test results should be correlated with the patient's clinical findings and history. This Pap test was processed using an automated screening system. Technical cytopathology services provided by [facility], at [address] [place] [address] (CLIA # [id number]/Link Figueredo MD, Synthetic Gem Press Operator.) 05/18/2025 2:40 PM [facility] Console Pap Interpretation Reported 05/18/2025 2:40 PM [facility] Brushing/Spatula Cervix uteri structure / Unknown 05/12/2025 05/13/2025 7:59 AM EST Ambrocio De Paz MD LAB CYTOLOGY ORDERABLES Final Result [facility]) [facility] [address] [place] [address], from Last 3 Months Insurance [facility] [employer] Care Teams [employer] Relationship Specialty Start Date End Date Physician, No Pcp PCP - General 05/23/25
== END 2025-06-06 14:27 | disposition home or self-care (01) ==
LOC: HO.HMCFM 13:35
PROVIDERS: PCP Physician Assistant Medical; Visit Provider Physician Assistant Medical
DX: M48.02 Spinal stenosis, cervical region (principal); R79.89 Other specified abnormal findings of blood chemistry; D72.810 Lymphocytopenia; R90.82 White matter disease, unspecified; R20.0 Anesthesia of skin; R20.2 Paresthesia of skin; H91.91 Unspecified hearing loss, right ear; K62.5 Hemorrhage of anus and rectum; R14.0 Abdominal distension (gaseous); G44.52 New daily persistent headache (NDPH)